=== PATIENT | male | born 1960 | race Caucasian/White ===

== ENCOUNTER 2019-04-14 22:07 | Emergency (ER) | payer MEDICARE, OTHER, SELFPAY ==
[2019-04-14 22:12] VITALS: BP 200/93; PULSE 82; RESP 20; TEMP 36.4; O2SAT 100; BMI 31.4
[2019-04-14 22:42] LABS: Basophils % 0.3 %; Eosinophils % 0.3 %; Hematocrit 45.8 % (42.0-52.0); Hemoglobin 14.8 g/dL (11.7-16.6); Lymphocytes # 1.1 10^3/uL (0.8-4.8); Mean Corpuscular HGB Conc 32.3 g/dL (30.0-36.0); Mean Corpuscular Hemoglobin 29.4 pg (28.0-34.0); Mean Corpuscular Volume 91.1 fL (80-94); Mean Platelet Volume 9.7 fL (7.4-10.4); Monocytes # 0.8 10^3/uL (0.2-0.9); Monocytes % 6.7 %; Neutrophils % 83.4 %; Nucleated Red Blood Cells % 0 %; Platelet Count 233 10^3/cmm (130-400); Red Blood Count 5.03 10^6/uL (4.1-5.3); Red Cell Distribution Width 13.4 % (12.1-15.1)
[2019-04-14 23:04] LABS: Alanine Aminotransferase 35 U/L (0-41); Albumin Level 4.3 g/dL (3.5-5.2); Alkaline Phosphatase 97 IU/L (40-130); Anion Gap 19.8 (5-19); Aspartate Amino Transferase 37 U/L (0-40); Blood Urea Nitrogen 7 mg/dL (6-20); Calcium 10.2 mg/dL (8.5-10.5); Carbon Dioxide 23 mmol/L (22-29); Chloride 95 mmol/L (98-107); Creatinine Clr Calc Pharmacy 99.4552; Globulin 2.8 g/dL (1.3-4.6); Glomerular Filtration Rate 69.2 mL/min (90-130); Glucose 162 mg/dL (65-115); Potassium 3.8 mmol/L (3.5-5.1); Sodium 134 mmol/L (136-145); Total Bilirubin 0.8 mg/dL (0.15-1.2); Total Protein 7.1 g/dL (6.6-8.7)
--- NOTE | 2019-04-14 23:21 | CTR_ITS ---
PROCEDURE INFORMATION: Exam: CT Abdomen And Pelvis With Contrast Exam date and time: 04/14/2019 12:03 AM Age: 58 years old Clinical indication: Nausea and vomiting; Abdominal pain; Other: Llq; Prior surgery; Surgery date: 6+ months; Surgery type: Gallbladder; Additional info: Abd pain TECHNIQUE: Imaging protocol: Computed tomography of the abdomen and pelvis with intravenous contrast. Total DLP: 1952.02 mGy-cm Radiation optimization: All CT scans at this facility use at least one of these dose optimization techniques: automated exposure control; mA and/or kV adjustment per patient size (includes targeted exams where dose is matched to clinical indication); or iterative reconstruction. Contrast material: OMNI 300; Contrast volume: 95 ml; Contrast route: 20G; COMPARISON: No relevant prior studies available. FINDINGS: Liver: There is a diffuse decrease in hepatic parenchymal density, consistent with mild fatty infiltration. There is a small cyst in the left lobe of the liver.Multiple calcified gallstones are present. Gallbladder and bile ducts: Normal. No calcified stones. No ductal dilation. Pancreas: The pancreas is normal. Spleen: The spleen is normal. Adrenals: The adrenal glands are normal. Kidneys and ureters: There are 2 stones in the mid left ureter measuring approximately 3 and 4 mm in size causing left hydronephrosis and hydroureter. There is left perinephric stranding and delay in the left nephrogram consistent with acute obstruction. Right kidney is unremarkable. Stomach and bowel: Unremarkable. No obstruction. No mucosal thickening. Appendix: A normal appendix is identified. Intraperitoneal space: Unremarkable. No free air. No significant fluid collection. Vasculature: The aorta demonstrates mild atherosclerotic calcification. Lymph nodes: Unremarkable. No enlarged lymph nodes. Bladder: Unremarkable as visualized. Reproductive: The prostate demonstrates moderate nonspecific enlargement. The seminal vesicles are normal. Bones/joints: The lumbar spine demonstrates mild degenerative changes at multiple levels. Soft tissues: There are small bilateral inguinal hernias containing fat. CT/CT abdomen pelvis w con* [id number] IMPRESSION: Obstructing stones in the mid left ureter causing left hydronephrosis. Radiation Dose CTDIVOL = (mGy): DLP = 1952.02 (mGy-cm)
--- NOTE | 2019-04-14 23:35 | ED_ITS ---
Entered by Radha Alamo, acting as scribe for Apr 14, 2019 22:07 HPI - Abdominal Pain General: Chief Complaint: Abdominal Pain Stated Complaint: low abd pain Time Seen by Provider: 04/14/19 23:35 Source: patient Mode of arrival: ambulatory Limitations: no limitations History of Present Illness: HPI narrative: 58 yo m came to the er pov for abd pain. Onset was today. Pt states that the pain is in the llq and radiates to the left flank and back. Pt states that he has had nausea and chills. MD elicited complaint: abdominal pain Location: LLQ and L flank Severity: mild Radiation: back Exacerbating factors: vomiting Relieving factors: nothing Associated Symptoms: Reports chills, nausea and vomiting; Denies dysuria and hematuria Review of Systems General: Reports: other (negative unless marked) Const: Reports: chills Eyes: Denies: change in vision or blurry vision ENMT: Denies: swelling of lips/tongue or Change in hearing Card: Denies: chest pain, palpitations, irregular heart rhythm, edema, swelling of feet/ankles, shortness of breath on exertion or shortness of breath when lying down Resp: Denies: shortness of breath, productive cough, non-productive cough or wheezing GI: Reports: abdominal pain, nausea and vomiting : Denies: difficulty urinating, painful urination, urinary frequency, urinary urgency or blood in urine Skin/Breast: Denies: rash, itching or redness Neuro: Denies: headache, dizziness or vertigo Psych: Denies: anxiety PFSH ED PFSH: Statuses (acute, chronic, etc) shown below reflect problem list status as previously entered and may not be historically accurate Social History Smoking and tobacco status: current every day smoker Physical Exam Const: GENERAL APPEARANCE: well developed ORIENTATION/CONSCIOUSNESS: Yes oriented to person, Yes oriented to place and Yes oriented to time HENMT: COMMON NORMALS: normocephalic, external ears normal and external nose normal HEAD & SCALP: normocephalic; no scalp tenderness FACE & SINUS: normal facial exam NOSE: external nose normal and no nasal discharge EXTERNAL EAR: Yes external ears normal MOUTH: tongue normal TEETH & GINGIVA: no abnormal tooth and associated gin giva THROAT: posterior oropharynx normal; no peritonsillar mass Eye: COMMON NORMALS: PERRL, EOMs intact bilaterally and conjunctivae normal EYELID: eyelids normal CONJUNCTIVA: Yes conjunctivae normal PUPIL: Yes PERRL Neck/C-Spine: COMMON NORMALS: full ROM GENERAL: No tracheal deviation CERVICAL SPINE: Yes normal cervical lordosis and No cervical spine tenderness Chest: COMMONS NORMALS: inspection of chest normal CHEST: No tenderness Resp: COMMON NORMALS: clear to auscultation bilaterally EFFORT & INSPECTION: No tachypneic, No respiratory distress, No retractions, No uses accessory muscles and No tracheal deviation AUSCULTATION: clear to auscult ation bilaterally, no rhonchi, no wheezes and lung sounds not diminished Cardio: COMMON NORMALS: regular rate and regular rhythm RATE: regular rate RHYTHM: regular rhythm HEART SOUNDS: no murmurs PERIPHERAL PULSES: radial pulses present GI: INSPECTION: No abdominal distension AUSCULTATION: No hyperactive bowel sounds and No hypoactive bowel sounds PALPATION: Yes tender Details: LLQ, No guarding and No rigid PERCUSSION: no dullness to percussion and no tympanic to percussion : BLADDER/KIDNEY EXAM: Yes CVA tenderness on the left Back/Pelvis: GENERAL BACK: Yes CVA tenderness Neuro: SENSORIUM/ORIENTATION: Yes oriented to person, Yes oriented to place and Yes oriented to time Psych: COMMON NORMALS: mental status grossly normal Skin: COMMON NORMALS: no rashes or lesions noted GENERAL SKIN EXAM: no rashes or lesions noted Course ED course: 58-year-old male with left flank and left lower quadrant pain. He has been vomiting. Mild leukocytosis. His pain was relieved with Toradol and Dilaudid. His CT scan shows a 3 mm and 4 mm stone in the left ureter causing hydronephrosis. There is no pyelonephritis. With improvement in his symptoms he will be allowed home with pain and nausea control. Vital Signs: Vital signs: Vital Signs Temperature 97.6 F 04/14/19 22:12 Pulse Rate 70 04/15/19 01:42 Respiratory Rate 16 04/15/19 01:42 Blood Pressure 149/82 04/15/19 01:42 Pulse Oximetry 94 04/15/19 01:42 MDM - Abdominal Pain Lab Data: Labs: Lab Results 02/07/20 02/07/20 02/07/20 Range/Units 22:32 22:32 23:55 WBC 12.0 H (4.0-10.0) 10^3/ uL RBC 5.03 (4.1-5.3) 10^6/u L Hgb 14.8 (11.7-16.6) g/dL Hct 45.8 (42.0-52.0) % MCV 91.1 (80-94) fL MCH 29.4 (28.0-34.0) pg MCHC 32.3 (30.0-36.0) g/dL RDW 13.4 (12.1-15.1) % Plt Count 233 (130-400) 10^3/c mm MPV 9.7 (7.4-10.4) fL Neut % (Auto) 83.4 % Lymph % (Auto) 9.0 % [place] % (Auto) 6.7 % Eos % (Auto) 0.3 % Baso % (Auto) 0.3 % Neut # (Auto) 10.0 H (1.8-7.7) 10^3/u L Lymph # (Auto) 1.1 (0.8-4.8) 10^3/u L [place] # (Auto) 0.8 (0.2-0.9) 10^3/u L Eos # (Auto) 0.0 (0.0-0.8) 10^3/u L Baso # (Auto) 0.0 (0.0-0.1) 10^3/u L Nucleated RBC % (a uto) 0 % Nucleated RBCs # 0.0 /100WBC Sodium 134 L (136-145) mmol/L Potassium 3.8 (3.5-5.1) mmol/L Chloride 95 L (98-107) mmol/L Carbon Dioxide 23 (22-29) mmol/L Anion Gap 19.8 H (5-19) BUN 7 (6-20) mg/dL Creatinine 1.1 (0.7-1.2) mg/dL GFR Calculation 69.2 L (90-130) mL/min Glucose 162 H (65-115) mg/dL Calcium 10.2 (8.5-10.5) mg/dL Total Bilirubin 0.8 (0.15-1.2) mg/dL AST 37 (0-40) U/L ALT 35 (0-41) U/L Alkaline Phosphata se 97 (40-130) IU/L Total Protein 7.1 (6.6-8.7) g/dL Albumin 4.3 (3.5-5.2) g/dL Globulin 2.8 (1.3-4.6) g/dL Urine Color Dark yellow (Yellow) Urine Appearance Cloudy (CLEAR) Urine pH 5 (5-7) Ur Specific Gravit y 1.020 (1.005-1.030) Urine Protein Trace (Negative) Urine Glucose (UA) 4+ H (Normal) Urine Ketones 1+ H (Negative) Urine Occult Blood 3+ H (Negative) Urine Nitrate Negative (Negative) Urine Bilirubin Neg (NEGATIVE) Urine Urobilinogen 1 H (Negative) mg/dL Ur Leukocyte Lu ase Negative (Negative) Urine RBC >100 H (0-2) /hpf Urine WBC 5-10 H (0-5) /hpf Ur Squamous Epith Cells 0-4 H (0-5) Urine Bacteria 1+ H (NONE) Urine Mucus 2+ Imaging Data ^: CT Abd/Pel: Radiologist's impression: [place] [address] CT Scan Report Signed Patient: Chris Vora #: [id number] : 1960Acct#:[id number] Age/Sex: 58 / MADM Date: 04/14/19 Loc: ERRoom/Bed: Attending Dr: Ordering Provider/Ordering MD: Cl Alcazar DO Date of Service: 04/14/19 Procedure(s): CT abdomen pelvis w con* [id number] Accession Number(s): [id number] Report Number: [id number] PROCEDURE INFORMATION: Exam: CT Abdomen And Pelvis With Contrast Exam date and time: 04/14/2019 12:03 AM Age: 58 years old Clinical indication: Nausea and vomiting; Abdominal pain; Other: Llq; Prior surgery; Surgery date: 6+ months; Surgery type: Gallbladder; Additional info: Abd pain TECHNIQUE: Imaging protocol: Computed tomography of the abdomen and pelvis with intravenous contrast. Total DLP: 1952.02 mGy-cm Radiation optimization: All CT scans at this facility use at least one of these dose optimization techniques: automated exposure control; mA and/or kV adjustment per patient size (includes targeted exams where dose is matched to clinical indication); or iterative reconstruction. Contrast material: OMNI 300; Contrast volume: 95 ml; Contrast route: 20G; COMPARISON: No relevant prior studies available. FINDINGS: Liver: There is a diffuse decrease in hepatic parenchymal density, consistent with mild fatty infiltration. There is a small cyst in the left lobe of the liver.Multiple calcified gallstones are present. Gallbladder and bile ducts: Normal. No calcified stones. No ductal dilation. Pancreas: The pancreas is normal. Spleen: The spleen is normal. Adrenals: The adrenal glands are normal. Kidneys and ureters: There are 2 stones in the mid left ureter measuring approximately 3 and 4 mm in size causing left hydronephrosis and hydroureter. There is left perinephric stranding and delay in the left nephrogram consistent with acute obstruction. Right kidney is unremarkable. Stomach and bowel: Unremarkable. No obstruction. No mucosal thickening. Appendix: A normal appendix is identified. Intraperitoneal space: Unremarkable. No free air. No significant fluid collection. Vasculature: The aorta demonstrates mild atherosclerotic calcification. Lymph nodes: Unremarkable. No enlarged lymph nodes. Bladder: Unremarkable as visualized. Reproductive: The prostate demonstrates moderate nonspecific enlargement. The seminal vesicles are normal. Bones/joints: The lumbar spine demonstrates mild degenerative changes at multiple levels. Soft tissues: There are small bilateral inguinal hernias containing fat. CT/CT abdomen pelvis w con* [id number] IMPRESSION: Obstructing stones in the mid left ureter causing left hydronephrosis. Radiation Dose CTDIVOL = (mGy): DLP = 1952.02 (mGy-cm) Dictated By:Emil Louis Signed By:Lisha Louisigned Date/Time:04/15/1938 DD/ Discharge Plan Discharge Patient Disposition: Home, Self-Care Clinical Impression: Ureterolithiasis Condition: Stable Prescriptions: New Percocet 7.5-325 mg tablet 1 tab PO Q6H PRN (Reason: pain) Qty: 14 RF: 0 Zofran 4 mg tablet 4 mg PO Q6H Qty: 10 RF: 0 Discharge Orders: Discharge Order (Routine); Ordered 04/15/19 Ordered By: Cl Alcazar Referrals: Rik Barraza MD [Physician] - 4-7 days [place],Jose Elias D, DO [Family Provider] - Discharge Diet: Advance as tolerated Discharge Activity: Increase activity as tolerated Patient Instructions: Kidney Stones (ED) Activity Restrictions/Additional Instructions: Return for fever greater than 100, worsening pain despite treatment, vomiting liquids or medications, other concerning symptoms. Call the urology office Wednesday morning for a follow-up appointment. Discharge Date/Time: 04/15/19 01:42 Coding Level of Care Code ED Airline Dispatcher for g Fwd The documentation recorded by the Jasmeet wright Stephanie Lyn, accurately reflects the service I personally performed and the decisions made by Ottoniel willard Jeremy John, DO Apr 14, 2019 22:07
[2019-04-14 23:56] VITALS: RESP 16
[2019-04-14] MEDS: HYDROmorphone 1 mg/mL INJ 1 mL IVP (23:56)
[2019-04-14] MEDS: ondansetron 2 mg/ML SDV 2 mL 4 MG IVP (23:56)
[2019-04-14] MEDS: ketorolac 30 mg/mL INJ IVP (23:57)
[2019-04-15 00:02] VITALS: BP 209/92
[2019-04-15] MEDS: iohexol 300 mg/mL 100 mL Btl IV (00:19)
[2019-04-15 00:50] LABS: Urine Appearance Cloudy (CLEAR); Urine Color Dark Yellow (Yellow); pH Urine 5 (5-7)
[2019-04-15 00:51] LABS: Add Urine Culture? Yes; Add Urine Microscopic? YES; Bacteria Urine 1+; Bilirubin Urine Neg (NEGATIVE); Blood Urine 3+ (Negative); Glucose Urine UA 4+ (Normal); Ketones Urine 1+ (Negative); Leukocyte Esterase Urine Negative (Negative); Mucus Urine 2+; Nitrate Urine Negative (Negative); Protein Urine Trace (Negative); RBC Urine >100 /hpf (0-2); Squamous Epithelial Cell Urine 0-4 (0-5); Urobilinogen Urine 1 mg/dL (Negative)
[2019-04-15 01:42] VITALS: BP 149/82; PULSE 70; RESP 16; O2SAT 94
--- NOTE | 2019-04-18 09:21 | DCPLANNER ---
Addendum entered by Guerita Mijares 04/26/19 11:20: commercial sales manager spoke with Shawnee at Dr. Quispe office, was told that clinic called patient to schedule a follow up appointment for patient. commercial sales manager was told that patient stated that he wants to follow up with his [facility] before seeing Dr. Barraza. Original Note: commercial sales manager had message to schedule a follow up appointment for patient with Dr. Barraza. commercial sales manager called the office of Dr. Barraza, spoke with [place], gave clinic patients name. Patient has [facility] insurance, cannot schedule a follow up appointment at this time. commercial sales manager called Sheila at [facility], gave her patients name, and the need for follow up with Dr. Barraza. commercial sales manager [facility].
== END 2019-04-15 01:42 | disposition home or self-care (01) ==
PROVIDERS: Physician Assistant; Emergency Provider Emergency Medicine; Family Provider Emergency Medicine Emergency Medical Services
DX: N20.1 Calculus of ureter (principal); F17.210 Nicotine dependence, cigarettes, uncomplicated
CPT/HCPCS: 36415; 74177; 80053; 81001; 85025; 87086; 96374; 96375; 99282; J1170; J1885; J2405; Q9967

== ENCOUNTER 2020-09-06 14:34 | Outpatient (CLI) | payer OTHER, SELFPAY ==
--- NOTE | 2020-09-06 14:43 | MR_ITS ---
WS: [id number] MRI LUMBAR SPINE NONCONTRAST HISTORY: LOW BACK PAIN COMPARISON: None available. TECHNIQUE: Sagittal and axial multisequence imaging is submitted. Normal posterior alignment. No acute fractures. Small amount of reactive marrow edema at L4. Mild disc space desiccation at L4-5 and L5-S1. Conus terminates normally at L1-2 disc level. L1-L2: Normal. L2-L3: Mild disc bulging and ligamentum flavum hypertrophy. No stenosis. L3-L4: Mild ligamentum flavum hypertrophy. No stenosis. L4-L5: Mild annular disc bulging. Mild disc flattening upon the thecal sac contacting the L5 nerve ro ots. No central or foraminal stenosis. L5-S1: Very mild facet joint arthritis. No stenosis. Paravertebral soft tissues are normal. MR/MR lumbar spine wo con* [id number] IMPRESSION: 1. No high-grade central or foraminal stenosis. 2. Mild disc bulging at L4-5 with minimal contact on the L5 nerve roots bilate rally. 3. Mild facet joint arthritis at L4-5 and L5-S1.
== END 2020-09-06 14:35 | disposition home or self-care (01) ==
PROVIDERS: PCP Emergency Medicine Emergency Medical Services; Visit Provider Emergency Medicine Emergency Medical Services
DX: M51.26 Other intervertebral disc displacement, lumbar region (principal); M47.816 Spondylosis without myelopathy or radiculopathy, lumbar region; M47.817 Spondylosis without myelopathy or radiculopathy, lumbosacral region
CPT/HCPCS: 72148

== ENCOUNTER → 2021-05-28 13:27 | Outpatient (BNVA) | payer OTHER, SELFPAY | PROVIDERS: PCP Emergency Medicine Emergency Medical Services; Visit Provider Internal Medicine | DX: E11.9 Type 2 diabetes mellitus without complications (principal); I25.2 Old myocardial infarction; I10 Essential (primary) hypertension; E78.5 Hyperlipidemia, unspecified; I73.9 Peripheral vascular disease, unspecified; F17.210 Nicotine dependence, cigarettes, uncomplicated; R00.2 Palpitations | CPT/HCPCS: 99214 ==

== ENCOUNTER → 2022-02-25 13:52 | Outpatient (BNVA) | payer OTHER, SELFPAY | PROVIDERS: PCP Emergency Medicine Emergency Medical Services; Visit Provider Internal Medicine | DX: I10 Essential (primary) hypertension (principal); E11.9 Type 2 diabetes mellitus without complications; Z79.4 Long term (current) use of insulin; I25.2 Old myocardial infarction; E78.5 Hyperlipidemia, unspecified; I73.9 Peripheral vascular disease, unspecified; F17.210 Nicotine dependence, cigarettes, uncomplicated | CPT/HCPCS: 99214 ==

== ENCOUNTER → 2022-12-23 16:02 | Outpatient (BNVA) | payer OTHER, SELFPAY | PROVIDERS: PCP Emergency Medicine Emergency Medical Services; Referring Provider Emergency Medicine Emergency Medical Services; Visit Provider Specialist | DX: M25.551 Pain in right hip; M54.31 Sciatica, right side; M16.0 Bilateral primary osteoarthritis of hip | CPT/HCPCS: 73502; 99204 ==

== ENCOUNTER → 2023-01-04 10:53 | Outpatient (BNVA) | payer OTHER, SELFPAY | PROVIDERS: PCP Emergency Medicine Emergency Medical Services; Referring Provider Emergency Medicine Emergency Medical Services; Visit Provider Surgery | DX: E61.1 Iron deficiency (principal) | CPT/HCPCS: 99204 ==

== ENCOUNTER 2023-01-12 08:06 | Day surgery (SDC) | payer OTHER, SELFPAY ==
--- NOTE | 2023-01-12 06:41 | W.PM.OPSUD ---
Surgery/Procedure H&P Update DATE OF PROCEDURE: January 12, 2023 DATE H&P PERFORMED: 01/04/23 H&P UPDATE INFORMATION: I have reviewed H&P completed within last 30 days, I have examined patient prior to procedure, No changes to prior documentation and [place] [facility] [place] indicated PLANNED PROCEDURE: Operation Date: 01/12/23 09:10 Proposed Procedures p 19050 egd [id number] colon G0121 screen colon A risk E61.1,z12.11(Not Applicable) - Bryan Kramer MD s Colonoscopy(Not Applicable) - Bryan Kramer MD
[2023-01-12 08:19] VITALS: BMI 29.5
[2023-01-12 08:22] VITALS: BP 115/71; PULSE 65; RESP 18; TEMP 36.1; O2SAT 99
--- NOTE | 2023-01-12 08:31 | ANES.PREANE2 ---
Pre-Anesthetic Assessment Height/Weight: Height 1.88 m Weight 104.326 kg Temp Pulse Resp BP Pulse Ox O2 Del Method 97.0 F L 65 18 115/71 99 Room Air 01/12/23 08:22 01/12/23 08:22 01/12/23 08:22 01/12/23 08:22 01/12/23 08:22 01/12/23 08:22 Preop Diagnosis: screening Operation Date: 01/12/23 09:10 Proposed Procedures p 19078 egd [id number] colon G0121 screen colon A risk E61.1,z12.11(Not Applicable) - Bryan Kramer MD s Colonoscopy(Not Applicable) - Bryan Kramer MD Familial anesthetic complications: none Was Beta [place] taken within 24 hours: Yes Was Clonidine taken within 24 hours: N/A Last intake: Intake Last Liquid Date 01/11/23 Last Liquid Time 11:55 Last Solid Date 01/11/23 Last Solid Time 06:00 Social Alcohol (history states he hasnt had any in a month) and Tobacco 2 pack(s) per day 30 pack years Exam alert, oriented x 3, clear to auscultation bilaterally and regular rate & rhythm Airway Submandibular: within normal limits Cervical ROM: within normal limits Mallampati: Class II Dentition: false Pulmonary Chronic Obstructive Pulmonary Disease and Exertional Dyspnea CV/HEM Stable Angina, Coronary Artery Disease, Hypertension and Myocardial Infarction stents x 2,1,1 last 4-5 years ago nitro taken 3 months None reported Hepatic None reported GI Gastroesophageal Reflux Disease (controlled) Metabolic Diabetes Mellitus and Hyperlipidemia [facility] Lower Back Pain and Osteoarthritis/DJD Neuropsych None reported Anesthetic Plan ASA status: 3 Anesthesia: MAC Risk of > 500 ml blood loss (7ml/kg in children): No Medications/Allergies Home Medications Medication Instructions Recorded Confirmed Last Taken Type amitriptyline 50 mg tablet 150 mg PO .HS 02/25/21 01/12/23 01/11/23 History amlodipine 5 mg tablet 5 mg PO DAILY #90 tabs 02/25/21 01/12/23 01/11/23 Rx aspirin 81 mg tablet,delayed 81 mg PO DAILY 02/25/21 01/12/23 01/04/23 History release (Adult Low Dose Aspirin) atorvastatin 80 mg tablet 80 mg PO .HS 02/25/21 01/12/23 01/11/23 History clopidogrel 75 mg tablet 75 mg PO DAILY 02/25/21 01/12/23 01/07/23 History hydrochlorothiazide 25 mg tablet 25 mg PO DAILY 02/25/21 01/12/23 01/11/23 History insulin aspart U-100 100 unit/mL 10 unit SUBCUT TID 02/25/21 01/12/23 01/11/23 History (3 mL) subcutaneous pen (Novolog FlexPen U-100 Insulin aspart) insulin glargine 100 unit/mL 20 unit SUBCUT DAILY 02/25/21 01/12/23 01/11/23 History subcutaneous solution (Lantus U-100 Insulin) isosorbide mononitrate 30 mg 30 mg PO DAILY 02/25/21 01/12/23 01/11/23 History tablet,extended release 24 hr metformin 1,000 mg tablet 1,000 mg PO BID 02/25/21 01/12/23 01/10/23 History metoprolol tartrate 100 mg tablet 50 mg PO BID 02/25/21 01/12/23 01/12/23 History omeprazole 20 mg capsule,delayed 20 mg PO DAILY 02/25/21 01/12/23 01/11/23 History release empagliflozin 25 mg tablet 25 mg PO DAILY 02/25/22 01/12/23 01/11/23 History (Jardiance) meloxicam 15 mg tablet 15 mg PO DAILY #30 tabs 12/23/22 01/12/23 01/11/23 Rx Allergies Allergy/AdvReac Type Severity Reaction Status Date / Time morphine Allergy Mild ADR-Halluci Verified 01/12/23 08:22 nating lisinopril Allergy Unknown Unknown Verified 01/12/23 08:22 methadone Allergy Unknown Unknown Verified 01/12/23 08:22 REPLACED BY [facility] Anesthesia Medical History Diabetes mellitus History of [place] (myocardial infarction) HTN (hypertension) Hyperlipidemia Left ureteral calculus PVD (peripheral vascular disease) Social History (Updated 01/08/23 @ 12:59 by Krystyna Olson RN) Smoking and tobacco/nicotine status: current every day tobacco/nicotine user (2.5 ppd) cigarettes Packs smoked per day: 3 Alcohol intake: current Alcohol intake frequency: 0-2 Drinks per Day Alcohol type: hard liquor Substance/Drug Use: current Data Anesthesia Cardiac Studies: No Data to Display
[2023-01-12] MEDS: sodium chloride 0.9% 1,000 ML 30 ML IV (08:35)
[2023-01-12 08:38] LABS: Glucose Point of Care 118 mg/dL (70-110)
[2023-01-12 09:48] VITALS: BP 91/55; PULSE 57; RESP 12; TEMP 36.1; O2SAT 94
--- NOTE | 2023-01-12 09:59 | ANE.PACU2 ---
Inpatient post-anesthesia follow up: Airway intact: Yes Vital signs: Temperature 97 F Pulse Rate 57 Respiratory Rate 12 Blood Pressure 91/55 Pulse Oximetry 94 Oxygen Delivery Me thod Nasal Cannula Oxygen Flow Rate 3 Fraction of Inspir ed Oxygen Hydration adequate: Yes Nausea and vomiting: No Pain level: 1 Mental status: Baseline
[2023-01-12 10:00] VITALS: BP 96/54; PULSE 62; RESP 14; O2SAT 97
[2023-01-12 10:12] VITALS: BP 105/69; PULSE 55; RESP 12; O2SAT 98
== END 2023-01-12 10:40 | disposition home or self-care (01) ==
PROVIDERS: PCP Emergency Medicine Emergency Medical Services; Visit Provider Surgery
PROC: 0DJ08ZZ Inspection of Upper Intestinal Tract, Via Natural or Artificial Opening Endoscopic (ICD-10-PCS; CPT 43235; principal; 2023-01-12 09:10)
PROC: 0DJD8ZZ Inspection of Lower Intestinal Tract, Via Natural or Artificial Opening Endoscopic (ICD-10-PCS; CPT 45330; 2023-01-12 09:10)
DX: Z12.11 Encounter for screening for malignant neoplasm of colon (principal); E61.1 Iron deficiency; K29.70 Gastritis, unspecified, without bleeding; K26.9 Duodenal ulcer, unspecified as acute or chronic, without hemorrhage or perforation; J44.9 Chronic obstructive pulmonary disease, unspecified; I25.10 Atherosclerotic heart disease of native coronary artery without angina pectoris; I10 Essential (primary) hypertension; I25.2 Old myocardial infarction; Z95.5 Presence of coronary angioplasty implant and graft; E11.9 Type 2 diabetes mellitus without complications; E78.5 Hyperlipidemia, unspecified; Z79.82 Long term (current) use of aspirin; Z79.4 Long term (current) use of insulin; F17.210 Nicotine dependence, cigarettes, uncomplicated
CPT/HCPCS: 36416; 43239; 45330; 82962; 88305; J2704; J7030

== ENCOUNTER 2023-02-01 13:17 | Outpatient (CLI) | payer OTHER, SELFPAY ==
--- NOTE | 2023-02-01 13:00 | MR_ITS ---
WS: [id number] MRI RIGHT HIP WITHOUT CONTRAST. COMPARISON: Radiograph 12/23/2022 Multiplanar, multisequence imaging is performed without contrast. Mild narrowing of each hip joint. No fracture or dislocation. No subtrochanteric bursitis. No marrow edema. The labrum is not adequately visualized to exclude labral tear. There is no muscle atrophy or edema surrounding the hip. No adenopathy. IMPRESSION: 1. No significant joint space narrowing and no marrow edema. No fracture. 2. Labrum is not well evaluated. Cannot exclude labral tear.
== END 2023-02-01 13:18 | disposition home or self-care (01) ==
LOC: RAD 13:17
PROVIDERS: PCP Emergency Medicine Emergency Medical Services; Visit Provider Specialist
DX: M25.551 Pain in right hip (principal)
CPT/HCPCS: 73721

== ENCOUNTER 2023-02-24 07:10 | Day surgery (SDC) | payer OTHER, SELFPAY ==
[2023-02-24 07:34] VITALS: BP 113/60; PULSE 61; RESP 18; TEMP 36.1; O2SAT 96; BMI 30.2
[2023-02-24] MEDS: sodium chloride 0.9% 1,000 ML 30 ML IV (07:51)
[2023-02-24 07:53] LABS: Glucose Point of Care 152 mg/dL (70-110)
--- NOTE | 2023-02-24 07:53 | W.PM.OPSFHP ---
Same Day Surgery H&P Indication for Procedure/HPI DATE OF PROCEDURE: February 24, 2023 CHIEF COMPLAINT/INDICATIONFOR SURGICAL PROCEDURE: need for screening colonoscopy PREOP DIAGNOSIS: need for screening colonoscopy after poor prep PLANNED PROCEDURE: Operation Date: 02/24/23 08:30 Proposed Procedures p 49588 egd 11798 colon G0121 screen colon A risk E61.1,Z12.11(Not Applicable) - Bryan Kramer MD s Colonoscopy(Not Applicable) - Bryan Kramer MD Medications/Allergies* Home Medications Medication Instructions Recorded Confirmed Type amitriptyline 50 mg tablet 150 mg PO .HS 02/25/21 02/23/23 History aspirin 81 mg tablet,delayed 81 mg PO DAILY 02/25/21 02/23/23 History release (Adult Low Dose Aspirin) atorvastatin 80 mg tablet 80 mg PO .HS 02/25/21 02/23/23 History clopidogrel 75 mg tablet 75 mg PO DAILY 02/25/21 02/23/23 History hydrochlorothiazide 25 mg tablet 25 mg PO DAILY 02/25/21 02/23/23 History insulin aspart U-100 100 unit/mL 10 unit SUBCUT TID 02/25/21 02/23/23 History (3 mL) subcutaneous pen (Novolog FlexPen U-100 Insulin aspart) insulin glargine 100 unit/mL 20 unit SUBCUT DAILY 02/25/21 02/23/23 History subcutaneous solution (Lantus U-100 Insulin) isosorbide mononitrate 30 mg 30 mg PO QPM 02/25/21 02/23/23 History tablet,extended release 24 hr metformin 1,000 mg tablet 1,000 mg PO BID 02/25/21 02/23/23 History metoprolol tartrate 100 mg tablet 50 mg PO BID 02/25/21 02/23/23 History omeprazole 20 mg capsule,delayed 20 mg PO DAILY 02/25/21 02/23/23 History release empagliflozin 25 mg tablet 25 mg PO DAILY 02/25/22 02/23/23 History (Jardiance) Allergies/Adverse Reactions Allergy/AdvReac Type Severity Reaction Status Date / Time morphine Allergy Mild ADR-Halluci Verified 02/23/23 08:32 nating lisinopril Allergy Unknown Unknown Verified 02/23/23 08:32 methadone Allergy Unknown Unknown Verified 02/23/23 08:32 Current Medications: Generic Name Dose Route Start Last Admin Trade Name Freq PRN Reason Stop Dose Admin Sodium Chloride 1,000 mls @ 30 mls/hr 02/24/23 07:15 02/24/23 07:51 Sodium Chloride 0.9% IV 02/25/23 07:14 30 mls/hr .Q24H JUNAID Administration Pertinent History/Comorbid Conditions* Medical History (Updated 12/26/22 @ 16:14 by Maria D Ramey MD) History of [place] (myocardial infarction) HTN (hypertension) PVD (peripheral vascular disease) Hyperlipidemia Diabetes mellitus Left ureteral calculus Social History Smoking and tobacco/nicotine status: current every day tobacco/nicotine user (2.5 ppd) cigarettes Packs smoked per day: 3 Alcohol intake: current Alcohol intake frequency: 0-2 Drinks per Day Alcohol type: hard liquor Substance/Drug Use: current Pertinent Exam Findings alert, oriented x 3 and clear to auscultation bilaterally Recommendations Surgery/Procedure today Coding Level of Care Code Acute Code for Chg Fwraven
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
[2023-02-24 09:07] VITALS: BP 114/65; PULSE 58; RESP 18; TEMP 36.2; O2SAT 97
--- NOTE | 2023-02-24 13:25 | ANE.PACU2 ---
Inpatient post-anesthesia follow up: Airway intact: Yes Vital signs: Temperature 97.2 F Pulse Rate 58 Respiratory Rate 18 Blood Pressure 114/65 Pulse Oximetry 97 Oxygen Delivery Me thod Room Air Oxygen Flow Rate Fraction of Inspir ed Oxygen Hydration adequate: Yes Nausea and vomiting: No Pain level: 2 Mental status: Baseline
== END 2023-02-24 09:32 | disposition home or self-care (01) ==
PROVIDERS: PCP Emergency Medicine Emergency Medical Services; Visit Provider Surgery
PROC: 0DJD8ZZ Inspection of Lower Intestinal Tract, Via Natural or Artificial Opening Endoscopic (ICD-10-PCS; CPT 45378; 2023-02-24 08:30)
DX: Z12.11 Encounter for screening for malignant neoplasm of colon (principal); Z79.82 Long term (current) use of aspirin; Z79.4 Long term (current) use of insulin; Z79.84 Long term (current) use of oral hypoglycemic drugs; I25.2 Old myocardial infarction; I10 Essential (primary) hypertension; E78.5 Hyperlipidemia, unspecified; E11.9 Type 2 diabetes mellitus without complications; F17.210 Nicotine dependence, cigarettes, uncomplicated; J44.9 Chronic obstructive pulmonary disease, unspecified; G47.30 Sleep apnea, unspecified; Z95.5 Presence of coronary angioplasty implant and graft
CPT/HCPCS: 36416; 45378; 82962; J2704; J7030

== ENCOUNTER 2023-09-14 14:29 | Emergency (ER) | payer OTHER, SELFPAY ==
[2023-09-14 14:30] VITALS: BP 138/81; PULSE 69; RESP 16; TEMP 36.7; O2SAT 98
--- NOTE | 2023-09-14 14:49 | XRR_ITS ---
PROCEDURE INFORMATION: Exam: XR Left Ribs with PA Chest Exam date and time: 09/14/2023 3:16 PM Age: 63 years old Clinical indication: Injury or trauma; Fall; Rib area, left side; Blunt trauma; Additional info: Fall/trauma TECHNIQUE: Imaging protocol: Radiologic exam of the left ribs with PA chest. Views: 3 views COMPARISON: CR XR chest 1V [id number] 09/27/2017 8:12 AM FINDINGS: Lungs: No infiltrate or consolidation. Pleural spaces: No pleural effusion or pneumothorax. Heart/Mediastinum: Cardiac size is within normal limits. Bones/joints: Views of the left ribs are without findings of a rib fracture, and particularly without findings of a displaced rib fracture. XR/XR ribs LT mn 3V w CXR1V [id number] IMPRESSION: No rib fracture identified, and particularly without identification of a displaced rib fracture. Follow-up as clinically indicated.
--- NOTE | 2023-09-14 14:49 | XR_ITS ---
WS: [id number] Left shoulder, 3 views, 09/14/2023 Clinical Data: trauma/fall Comparison: None. Findings: No fractures or dislocations are seen. The AC joint is normal. The adjacent left clavicle, left scapu la and ribs are normal. The soft tissues are unremarkable. XR/XR shoulder LT min 2V* [id number] Impression: Negative left shoulder.
--- NOTE | 2023-09-14 14:50 | W.ED.FALL ---
HPI - Fall General: Chief Complaint: Fall Stated Complaint: fell 7 days left rib pain Time Seen by Provider: 09/14/23 14:41 Source: patient Mode of arrival: ambulatory Limitations: no limitations History of Present Illness: Patient is a nice 63-year-old male presents to ED today with complaint of left-sided rib pain following a fall a week ago. Patient states he accidentally tripped over a piece of plywood that was lying on the floor and fell onto his left side. He felt like he could treat pain conservatively at home but states over the past week pain has not improved. He does not complain of shortness of breath or difficulty breathing. Pain seems to be worse with movement, palpation, coughing/sneezing, etc. Also has some complaints with left shoulder. Denies striking his head or LOC. No neck or back pain. MD complaint: fall Onset (ago): week(s) Fall from: standing Fall witnessed: no Place fall occurred: home Prolonged down time: no Symptoms prior to fall: none Context: tripped/slipped Location of injury: chest Location of injury - extremities: Left: shoulder Severity: moderate Associated symptoms-after fall: Reports chest pain; Denies abdominal pain, headache(s), hematuria, lightheadedness or neck pain Review of Systems Eyes: Denies: change in vision, blurry vision, photophobia, eye discharge, floaters or seeing flashes ENMT: Denies: throat pain, odynophagia, ear or mastoid pain, ear discharge, nasal discharge, epistaxis or sinus pain Card: Reports: chest pain; Denies: palpitations, lightheadedness, syncope or pre-syncope Resp: Denies: dyspnea or pain on inspiration GI: Denies: abdominal pain : Denies: flank pain or hematuria Musc: Reports: joint pain (L shoulder); Denies: neck pain, back pain, extremity pain, extremity swelling or joint swelling Neuro: Denies: headache(s), numbness in extremities, weakness in extremities, sensory changes or dizziness CRITICAL ACCESS HOSPITAL ED PFSH: Medical History History of DC (myocardial infarction) HTN (hypertension) PVD (peripheral vascular disease) Hyperlipidemia Diabetes mellitus Left ureteral calculus Social History Smoking and tobacco/nicotine status: current every day tobacco/nicotine user (2.5 ppd) cigarettes Packs smoked per day: 3 Alcohol intake: current Alcohol intake frequency: 0-2 Drinks per Day Alcohol type: hard liquor Substance/Drug Use: current Physical Exam Const: COMMON NORMALS: no acute distress, average body habitus, patient oriented x3, no limitations, healthy appearing, alert and well nourished GENERAL APPEARANCE: cooperative ORIENTATION/CONSCIOUSNESS: Yes awake, Yes oriented to person, Yes oriented to place and Yes oriented to time HENMT: COMMON NORMALS: normocephalic, atraumatic and TM's normal bilaterally HEAD & SCALP: normal to inspection, normocephalic and atraumatic; no Starr's sign, no hematoma and no raccoon eyes FACE & SINUS: normal facial exam TYMPANIC MEMBRANE: TM's normal bilaterally MOUTH: other (no intraoral injuries noted) Eye: COMMON NORMALS: Equal, round and reactive pupils present and EOMs intact bilaterally GENERAL EYE: appearance normal, both eyes and all related structures and normal light reflex PUPIL: Yes Equal, round and reactive pupils present DIRECT OPHTHALMOSCOPY: Yes normal light reflex Neck/C-Spine: COMMON NORMALS: full ROM GENERAL: Yes normal visual inspection CERVICAL SPINE: Yes cervical ROM normal, No pain with cervical ROM, No Cervical spine tenderness, No step off deformity and No Paracervical muscle tenderness Chest: COMMONS NORMALS: normal inspection of the chest Chest images (male): 1. TTP anteriolateral L chest pain; no crepitus; normal lung sounds Resp: COMMON NORMALS: normal respiratory effort and clear to auscultation bilaterally AUSCULTATION: clear to auscultation bilaterally Cardio: COMMON NORMALS: regular rate and regular rhythm RATE: regular rate RHYTHM: regular rhythm GI: COMMON NORMALS: Normal to inspection, nondistended, normoactive bowel sounds present, Soft to palpation, non-tender, No hepatosplenomegaly present and no masses INSPECTION: Yes normal to inspection and No abdominal wall ecchymosis AUSCULTATION: Yes normoactive bowel sounds PALPATION: Yes Soft to palpation and Yes No hepatosplenomegaly present Back/Pelvis: COMMON NORMALS: thoracic and lumbar spine normal to inspection, no thoracic nor lumbar tenderness and thoraco-lumbar ROM normal Extremity: COMMON NORMALS: normal to inspection, full ROM, capillary refill normal, no joint enlargement and no clubbing, cyanosis or edema LEFT UPPER EXTREMITY: Yes shoulder joint (TTP mildly over medial inferior scapula but normal ROM) Left shoulder joint: Yes neurovascular exam (normal) and Yes other (chronic deformity medial L clavicle from old fracture) Neuro: THONG COMA SCALE: document GCS findings [place] coma scale eye opening: Spontaneous Thong coma scale verbal response: Orientated [place] coma scale motor response: Obey commands [place] coma scale total score: 15 COMMON NORMALS: patient oriented x3, CN's II-XII intact bilaterally, moves all extremities, no focal motor deficits, no sensory deficits noted and gait normal SENSORIUM/ORIENTATION: Yes alert, Yes oriented to person, Yes oriented to place and Yes oriented to time SPEECH: speech normal GAIT: Yes Normal gait present Skin: COMMON NORMALS: no rashes or lesions noted GENERAL SKIN EXAM: no rashes or lesions noted TRAUMA: no lacerations or abrasions Course Vital Signs: Vital signs: Vital Signs Temperature 98.1 F 09/14/23 14:30 Pulse Rate 69 09/14/23 14:30 Respiratory Rate 16 09/14/23 14:30 Blood Pressure 138/81 09/14/23 14:30 Pulse Oximetry 98 09/14/23 14:30 Oxygen Delivery Me thod Room Air 09/14/23 14:30 MDM - Fall Medical Decision Making XRs unremarkable. Vitals stable. EKG performed as well just due to chest pain complaint-this was unremarkable. Patient will be allowed discharge with return precautions-otherwise follow up with PCP. Medical Records I reviewed the patient's medical records. Lab Data Radiology Impressions Ribs X-Ray 09/14/23 14:49 IMPRESSION: No rib fracture identified, and particularly without identification of a displaced rib fracture. Follow-up as clinically indicated. Shoulder X-Ray 09/14/23 14:49 Impression: Negative left shoulder. All radiology interpretation(s) finalized by discharge Discharge Plan Discharge Patient Disposition: Home Clinical Impression: Contusion of rib on left side Qualifiers: Encounter type: initial encounter Qualified Code(s): S20.212A - Contusion of left front wall of thorax, initial encounter Condition: Stable Prescriptions: New hydrocodone-acetaminophen 5-325 mg tablet 1 tab PO Q6H PRN (Reason: pain) Qty: 12 0RF No Action amitriptyline 50 mg tablet 150 mg PO .HS atorvastatin 80 mg tablet 80 mg PO .HS clopidogrel 75 mg tablet 75 mg PO DAILY hydrochlorothiazide 25 mg tablet 25 mg PO DAILY insulin aspart U-100 [Novolog FlexPen U-100 Insulin] 100 unit/mL (3 mL) insulin pen 10 unit SUBCUT TID isosorbide mononitrate 30 mg tablet extended release 24 hr 30 mg PO QPM metformin 1,000 mg tablet 1,000 mg PO BID metoprolol tartrate 100 mg tablet 50 mg PO BID omeprazole 20 mg capsule,delayed release(DR/EC) 20 mg PO DAILY aspirin [Adult Low Dose Aspirin] 81 mg tablet,delayed release (DR/EC) 81 mg PO DAILY Lantus U-100 Insulin 100 unit/mL solution 20 unit SUBCUT DAILY amlodipine 5 mg tablet 5 mg PO DAILY Qty: 90 3RF Jardiance 25 mg tablet 25 mg PO DAILY Discharge Orders: Discharge ED (Routine); Ordered 09/14/23 Ordered By: Minerva Mckinley Referrals: Jose Elias Garcia DO [Primary Care Provider] - Patient Instructions: Rib Contusion (ED), Opioid Safety, Pain Management Activity Restrictions/Additional Instructions: As we discussed please follow-up with your primary care provider in a week or so if symptoms do not seem to be improving. You need to return to the emergency department for worsening chest pain, shortness of breath, difficulty breathing, fevers, or any other concerns you may have. I hope you begin to feel better soon. Coding Level of Care Code ED Public Accountant for Gayathri Meneses
--- NOTE | 2023-09-14 14:58 | ECG_ITS ---
[facility] Test Date: 2023-09-14 Pat Name: Chris Vora Department: Room: Gender: Male Nursing Home Assistant: : 1960 Requested By: Minerva Mckinley Order Number: [id number] Phuc MD: Alicia Crews M.D. Measurements Intervals [place] Rate: 69 P: 52 OK: 211 QRS: 64 QRSD: 87 T: 51 QT: 354 QTc: 381 Interpretive Statements SINUS RHYTHM WITH FIRST DEGREE AV BLOCK WITH OCCASIONAL SUPRAVENTRICULAR PREMATURE COMPLEXES NONSPECIFIC T-WAVE ABNORMALITY Compared to ECG 09/30/2017 05:53:51 First degree AV block now present T-wave abnormality still present Electronically Signed On 09-14-2023 23:48:01 CDT by Alicia Crews M.D. [email or web address]
== END 2023-09-14 15:56 | disposition home or self-care (01) ==
PROVIDERS: Emergency Provider Physician Assistant; PCP Emergency Medicine Emergency Medical Services
DX: S20.212A Contusion of left front wall of thorax, initial encounter (principal); E11.51 Type 2 diabetes mellitus with diabetic peripheral angiopathy without gangrene; I10 Essential (primary) hypertension; E78.5 Hyperlipidemia, unspecified; I25.2 Old myocardial infarction; F17.210 Nicotine dependence, cigarettes, uncomplicated; Z79.899 Other long term (current) drug therapy; Z79.84 Long term (current) use of oral hypoglycemic drugs; Z79.4 Long term (current) use of insulin
CPT/HCPCS: 71101; 73030; 93005; 99284

== ENCOUNTER 2024-06-19 20:00 | Outpatient (CLI) | payer OTHER, SELFPAY | END 2024-06-19 20:01 | disposition home or self-care (01) | LOC: SLEEP 06-20 03:38 | PROVIDERS: PCP Emergency Medicine Emergency Medical Services; Visit Provider Family Medicine | DX: G47.33 Obstructive sleep apnea (adult) (pediatric) (principal); G47.36 Sleep related hypoventilation in conditions classified elsewhere | CPT/HCPCS: 95810 ==

== ENCOUNTER 2024-09-14 14:26 | Emergency (ER) | payer OTHER, SELFPAY ==
[2024-09-14 14:32] VITALS: BP 138/71; PULSE 87; RESP 17; TEMP 36.7; O2SAT 98
--- OUTSIDE RECORDS SUMMARY | 2024-09-14 14:32 | XMS_ITS | Clinical Summary ---
Author Organization [facility] Address [address] 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
--- OUTSIDE RECORDS SUMMARY | 2024-09-14 14:32 | XMS_ITS | Encounter Summary ---
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
[2024-09-14 14:59] LABS: Glucose Urine UA 2+ (Normal); Nitrate Urine Negative (Negative); Specific Gravity, Urine 1.022 (1.005-1.030)
[2024-09-14 15:02] LABS: Add Urine Microscopic? YES
--- NOTE | 2024-09-14 16:05 | W.ED.BACK ---
HPI - Back Pain/Injury General: Chief Complaint: Back Pain/Injury Stated Complaint: low back pain Time Seen by Provider: 09/14/24 15:42 History of Present Illness: 64-year-old man who presents emergency room with right flank and back pain. He says it starts in his mid right back and radiates around to the front. No dysuria. No hematuria. No shortness of breath. No chest pain. No cough. Has a previous cholecystectomy. Hurts with movement. No nausea vomiting or fevers. Related Data Home Medications ?Medication ?Instructions ?Recorded ?Confirmed amitriptyline 50 mg tablet 150 mg PO .HS 02/25/21 02/23/23 aspirin 81 mg tablet,delayed 81 mg PO DAILY 02/25/21 02/23/23 release (Adult Low Dose Aspirin) atorvastatin 80 mg tablet 80 mg PO .HS 02/25/21 02/23/23 clopidogrel 75 mg tablet 75 mg PO DAILY 02/25/21 02/23/23 hydrochlorothiazide 25 mg tablet 25 mg PO DAILY 02/25/21 02/23/23 insulin aspart U-100 100 unit/mL 10 unit SUBCUT TID 02/25/21 02/23/23 (3 mL) subcutaneous pen (Novolog FlexPen U-100 Insulin aspart) insulin glargine 100 unit/mL 20 unit SUBCUT DAILY 02/25/21 02/23/23 subcutaneous solution (Lantus U-100 Insulin) isosorbide mononitrate 30 mg 30 mg PO QPM 02/25/21 02/23/23 tablet,extended release 24 hr metformin 1,000 mg tablet 1,000 mg PO BID 02/25/21 02/23/23 metoprolol tartrate 100 mg tablet 50 mg PO BID 02/25/21 02/23/23 omeprazole 20 mg capsule,delayed 20 mg PO DAILY 02/25/21 02/23/23 release empagliflozin 25 mg tablet 25 mg PO DAILY 02/25/22 02/23/23 (Jardiance) Previous Rx's ?Medication ?Instructions ?Recorded amlodipine 5 mg tablet 5 mg PO DAILY #90 tabs 02/25/21 hydrocodone 5 mg-acetaminophen 325 1 tab PO Q6H PRN pain #12 tabs 09/14/23 mg tablet cyclobenzaprine 10 mg tablet 10 mg PO Q8H PRN muscle spasm #20 09/14/24 tabs dexamethasone 6 mg tablet 6 mg PO DAILY 5 days #5 tabs 09/14/24 diclofenac sodium 50 mg 50 mg PO BID PRN pain #14 tabs 09/14/24 tablet,delayed release tramadol 50 mg tablet 50 mg PO Q8H PRN pain #20 tabs 09/14/24 Allergies Allergy/AdvReac Type Severity Reaction Status Date / Time morphine Allergy Mild ADR-Halluci Verified 09/14/23 14:36 nating lisinopril Allergy Unknown Unknown Verified 09/14/23 14:36 methadone Allergy Unknown Unknown Verified 09/14/23 14:36 Review of Systems Narrative: Constitutional symptoms: Negative except as documented in HPI. Skin symptoms: Negative except as documented in HPI. Eye symptoms: Negative except as documented in HPI. ENMT symptoms: Negative except as documented in HPI. Respiratory symptoms: Negative except as documented in HPI. Cardiovascular symptoms: Negative except as documented in HPI. Gastrointestinal symptoms: Negative except as documented in HPI. Genitourinary symptoms: Negative except as documented in HPI. Musculoskeletal symptoms: Negative except as documented in HPI. Neurologic symptoms: Negative except as documented in HPI. Psychiatric symptoms: Negative except as documented in HPI. Endocrine symptoms: Negative except as documented in HPI. PFSH ED PFSH: Medical History (Updated 09/14/24 @ 18:08 by Nelida Romano MD) History of IA (myocardial infarction) HTN (hypertension) PVD (peripheral vascular disease) Hyperlipidemia Diabetes mellitus Left ureteral calculus Social History Smoking and tobacco/nicotine status: current every day tobacco/nicotine user (2.5 ppd) cigarettes Packs smoked per day: 3 Alcohol intake: current Alcohol intake frequency: 0-2 Drinks per Day Alcohol type: hard liquor Substance/Drug Use: current Physical Exam Narrative: EXAM NARRATIVE: General: Alert, no acute distress. Head: Normocephalic Neck: Trachea midline Eye: Extraocular movements are intact. Ears, nose, mouth and throat: Oral mucosa moist Respiratory: Respirations are non-labored Musculoskeletal: Normal ROM Back: no step off, no focal tenderness, some paraspinal muscle tenderness Neurological: Alert and oriented, No focal neurological deficit observed. Psychiatric: Cooperative, appropriate mood & affect. Course Vital Signs: Vital signs: Vital Signs Temperature 98.1 F 09/14/24 14:32 Pulse Rate 76 09/14/24 17:14 Respiratory Rate 17 09/14/24 14:32 Blood Pressure 140/77 09/14/24 17:14 Pulse Oximetry 96 09/14/24 17:14 Oxygen Delivery Me thod Room Air 09/14/24 17:14 MDM - Back Pain/Injury Medical Decision Making Medical decision making: Differential diagnosis including but not limited to and based on the above HPI, review of systems and physical exam: Ureterolithiasis. Urinary tract infection. Appendicitis. Cholecystis. Musculoskeletal / back pain. Pyelonephritis. Orders placed to evaluate differential diagnosis based on the above differential, HPI and physical exam Lab Review: Laboratory results were reviewed and interpreted by myself the emergency room physician. No leukocytosis. No anemia. No renal failure. No blood or infection in urine. CT abdomen pelvis with contrast: No urologic pathology. No stones. This was reviewed and interpreted by myself the emergency room physician. I also reviewed the radiology report. CT of the lumbar spine: Slight worsening of L4-L5 pathology. Mild right L5 root compromise possibly. However patient's symptoms are not consistent with pathology at this level. This was reviewed and interpreted by myself the emergency room physician. I also reviewed the radiology report. I reviewed the patient's medical record. Reexamination: Patient remained stable. No increased work of breathing. No altered mental status. No focal motor deficits. Consultation: I spoke with Dr. Mack who is on-call for spine orthopedics. He does not believe the pathology seen on the CT scan would be consistent and he should have symptoms down his leg not in his ribs. He will see him in clinic. Assessment and plan: Back pain ? IV Norflex Toradol and Decadron in the emergency room - Discharged home - Discussed plan with patient. Answered any questions. - Evaluation and treatment of this problem were appropriate in the emergency setting. Labs 09/14/24 16:44 09/14/24 16:44 Radiology Impressions Abdomen/Pelvis CT 09/14/24 16:08 IMPRESSION: 1. Interval passage of previously seen obstructing proximal left ureteral stones. Currently, no renal pathology is evident. 2. Prior cholecystectomy. No operative complication is evident. Lumbar Spine CT 09/14/24 16:08 IMPRESSION: 1. Slight interval increase in subarticular recess stenosis on the right at L4-L5 potential mild right L5 root compromise. Clinical correlation is needed. 2. Mild left L5 epiradicular fat effacement, unchanged from prior MRI. Laboratory Results WBC 7.50 10^3/uL (3.29-11.43) 09/14/24 16:44 RBC 5.77 10^6/uL (3.85-5.65) H 09/14/24 16:44 Hgb 16.50 g/dL (11.27-16.99) 09/14/24 16:44 Hct 51.4 % (37-53) 09/14/24 16:44 MCV 89.1 fl (82-101) 09/14/24 16:44 MCH 28.6 pg (27-33) 09/14/24 16:44 MCHC 32.1 g/dL (30-55) 09/14/24 16:44 RDW 17.5 % (12.1-15.1) H 09/14/24 16:44 Plt Count 191 10^3/cmm (157-399) 09/14/24 16:44 MPV 9.0 fL (7.4-10.4) 09/14/24 16:44 Neut % (Auto) 63.3 % 09/14/24 16:44 Lymph % (Auto) 25.3 % 09/14/24 16:44 [place] % (Auto) 8.3 % 09/14/24 16:44 Eos % (Auto) 2.0 % 09/14/24 16:44 Baso % (Auto) 0.8 % 09/14/24 16:44 Neut # (Auto) 4.75 10^3/uL (1.8-7.7) 09/14/24 16:44 Lymph # (Auto) 1.9 10^3/uL (0.8-4.8) 09/14/24 16:44 [place] # (Auto) 0.6 10^3/uL (0.2-0.9) 09/14/24 16:44 Eos # (Auto) 0.2 10^3/uL (0.0-0.8) 09/14/24 16:44 Baso # (Auto) 0.1 10^3/uL (0.0-0.1) 09/14/24 16:44 Nucleated RBC % (auto) 0 % 09/14/24 16:44 Nucleated RBCs # 0.0 /100WBC 09/14/24 16:44 Sodium 138 mmol/L (136-145) 09/14/24 16:44 Potassium 3.9 mmol/L (3.5-5.1) 09/14/24 16:44 Chloride 99 mmol/L (98-107) 09/14/24 16:44 Carbon Dioxide 24 mmol/L (22-29) 09/14/24 16:44 Anion Gap 18.9 (5-19) 09/14/24 16:44 BUN 10 mg/dL (8-23) 09/14/24 16:44 Creatinine 0.7 mg/dL (0.7-1.2) 09/14/24 16:44 GFR Calculation 114.3 mL/min (90-130) 09/14/24 16:44 Glucose 103 mg/dL (65-115) 09/14/24 16:44 Calculated Osmolality 285 mOsm/kg (285-295) 09/14/24 16:44 Lactic Acid 1.4 mmol/L (0.5-2.2) 09/14/24 16:44 Calcium 9.4 mg/dL (8.5-10.5) 09/14/24 16:44 Total Bilirubin 0.4 mg/dL (0.15-1.2) 09/14/24 16:44 AST 22 U/L (0-40) 09/14/24 16:44 ALT 22 U/L (0-41) 09/14/24 16:44 Alkaline Phosphatase 106 U/L (40-130) 09/14/24 16:44 C-Reactive Protein 3.4 mg/L (0.0-4.9) 09/14/24 16:44 Total Protein 7.0 g/dL (6.6-8.7) 09/14/24 16:44 Albumin 4.2 g/dL (3.5-5.2) 09/14/24 16:44 Globulin 2.8 g/dL (1.3-4.6) 09/14/24 16:44 Lipase 25 U/L (13-60) 09/14/24 16:44 Urine Color Yellow (Yellow) 09/14/24 14:20 Urine Appearance Clear (CLEAR) 09/14/24 14:20 Urine pH 5.5 (5-7) 09/14/24 14:20 Ur Specific [place] 1.022 (1.005-1.030) 09/14/24 14:20 Urine Protein Negative (Negative) 09/14/24 14:20 Urine Glucose (UA) 2+ (Normal) H 09/14/24 14:20 Urine Ketones Negative (Negative) 09/14/24 14:20 Urine Blood Negative (Negative) 09/14/24 14:20 Urine Nitrate Negative (Negative) 09/14/24 14:20 Urine Bilirubin Negative (Negative) 09/14/24 14:20 Urine Urobilinogen 0.2 mg/dL (Negative) 09/14/24 14:20 Ur Leukocyte Esterase Negative (Negative) 09/14/24 14:20 Urine RBC 0-2 /hpf (0-2) 09/14/24 14:20 Urine WBC 0-5 /hpf (0-5) 09/14/24 14:20 Ur Squamous Epith Cells 0-5 /hpf (0-5) 09/14/24 14:20 Amorphous Sediment Not Reportable 09/14/24 14:20 Urine Bacteria None seen /hpf (NONE) 09/14/24 14:20 Hyaline Casts 0-4 /lpf H 09/14/24 14:20 All radiology interpretation(s) finalized by discharge Discharge Plan Discharge Patient Disposition: Home Clinical Impression: Back pain Condition: Stable Prescriptions: New cyclobenzaprine 10 mg tablet 10 mg PO Q8H PRN (Reason: muscle spasm) Qty: 20 0RF dexamethasone 6 mg tablet 6 mg PO DAILY 5 Days Qty: 5 0RF tramadol 50 mg tablet 50 mg PO Q8H PRN (Reason: pain) Qty: 20 0RF diclofenac sodium 50 mg tablet,delayed release (DR/EC) 50 mg PO BID PRN (Reason: pain) Qty: 14 0RF No Action amitriptyline 50 mg tablet 150 mg PO .HS atorvastatin 80 mg tablet 80 mg PO .HS clopidogrel 75 mg tablet 75 mg PO DAILY hydrochlorothiazide 25 mg tablet 25 mg PO DAILY insulin aspart U-100 [Novolog FlexPen U-100 Insulin] 100 unit/mL (3 mL) insulin pen 10 unit SUBCUT TID isosorbide mononitrate 30 mg tablet extended release 24 hr 30 mg PO QPM metformin 1,000 mg tablet 1,000 mg PO BID metoprolol tartrate 100 mg tablet 50 mg PO BID omeprazole 20 mg capsule,delayed release(DR/EC) 20 mg PO DAILY aspirin [Adult Low Dose Aspirin] 81 mg tablet,delayed release (DR/EC) 81 mg PO DAILY Lantus U-100 Insulin 100 unit/mL solution 20 unit SUBCUT DAILY amlodipine 5 mg tablet 5 mg PO DAILY Qty: 90 3RF Jardiance 25 mg tablet 25 mg PO DAILY hydrocodone-acetaminophen 5-325 mg tablet 1 tab PO Q6H PRN (Reason: pain) Qty: 12 0RF Discharge Orders: Discharge ED (Routine); Ordered 09/14/24 Ordered By: Nelida Romano Referrals: Ranjith Mack DO [Physician, Orthopedics] - 2 weeks Referral Note: You do have some degenerative changes in your back. You should call for follow-up appointment with Dr. Mack. Nelida Romano MD [Emergency Provider, Emergency Medicine] Jose Elias Garcia DO [Primary Care Provider, Emergency Medicine] Discharge Diet: Usual diet Discharge Activity: Increase activity as tolerated Patient Instructions: Back Pain (ED), Opioid Safety, Pain Management, Patient Portal & Buck Instructions Activity Restrictions/Additional Instructions: Thank you for choosing [facility] for your healthcare needs today. You have been screened and evaluated and felt safe for discharge. Health conditions do change or evolve sometimes and as such it is important that you follow up with your Primary Doctor to be re checked, 3-5 days is a general good time frame for follow up. You are always welcome to return to the ED for re assessment if your symptoms are worsening or you have new concerns Print Language: Occitan Coding Level of Care Code ED Vp [employer] Marketing for Gayathri Meneses
--- NOTE | 2024-09-14 16:08 | CTR_ITS ---
PROCEDURE INFORMATION: Exam: CT Lumbar Spine Without Contrast Exam date and time: 09/14/2024 4:31 PM Age: 64 years old Clinical indication: Low back pain; Prior surgery; Surgery date: 6+ months; Surgery type: Gb TECHNIQUE: Imaging protocol: Computed tomography of the lumbar spine without contrast. Radiation optimization: All CT scans at this facility use at least one of these dose optimization techniques: automated exposure control; mA and/or kV adjustment per patient size (includes targeted exams where dose is matched to clinical indication); or iterative reconstruction. COMPARISON: MR lumbar spine wo con* [id number] 09/06/2020 2:48 PM RADIATION DOSE METRICS: Total DLP (mGy-cm): 1059.7 FINDINGS: Spine is imaged from mid T12 through S3. AP alignment and curvature are normal. No acute fracture, lytic, or blastic lesions are present. There is slight anterior wedging of the L1 vertebral body, unchanged from prior lumbar spine MRI are appearance from 2020. Paraspinal soft tissues show scattered aortic, iliac, and splenic artery atherosclerotic calcifications. Surgical clips in the gallbladder fossa are noted. No adenopathy is observed. T12-L1, L1-L2: No significant spondylosis is present. L2-L3: Disc height is normal. There is a trace disc bulge and mild facet hypertrophy but no root impingement. L3-L4: Disc height is normal. There is a trace annular bulge and mild facet hypertrophy but no nerve root impingement L4-L5: Moderate disc space narrowing is seen with minimal vacuum disc phenomenon and a broad posterior disc bulge with right far lateral prominence. There is mild ligament hypertrophy. Right subarticular recess narrowing is seen with possible slight compromise of the right L5 root, slightly increased from prior MRI. The L4 roots exit without compromise. L5-S1: Moderate disc space narrowing is present. There is a shallow disc bulge without S1 root impingement. Mild bilateral facet hypertrophy is noted. There is left L5 epiradicular fat effacement due to the spondylosis at this level. No significant change is apparent. CT/CT lumbar spine wo con* [id number] IMPRESSION: 1. Slight interval increase in subarticular recess stenosis on the right at L4-L5 potential mild right L5 root compromise. Clinical correlation is needed. 2. Mild left L5 epiradicular fat effacement, unchanged from prior MRI.
--- NOTE | 2024-09-14 16:08 | CTR_ITS ---
PROCEDURE INFORMATION: Exam: CT Abdomen And Pelvis Without Contrast Exam date and time: 09/14/2024 4:31 PM Age: 64 years old Clinical indication: Pain; Other: Flank RT; Prior surgery; Surgery date: 6+ months; Surgery type: Gb; Additional info: Abdominal pain TECHNIQUE: Imaging protocol: Computed tomography of the abdomen and pelvis without contrast. Radiation optimization: All CT scans at this facility use at least one of these dose optimization techniques: automated exposure control; mA and/or kV adjustment per patient size (includes targeted exams where dose is matched to clinical indication); or iterative reconstruction. COMPARISON: CT abdomen pelvis w con* [id number] 04/15/2019 12:30 AM RADIATION DOSE METRICS: Total DLP (mGy-cm): 970.3 FINDINGS: Heart: The heart size is within normal limits. There is no pericardial effusion. There are coronary artery atherosclerotic changes present. Liver: Normal. No mass. Gallbladder and biliary ducts: Cholecystectomy changes are identified. There is no indication of biliary obstruction. Pancreas: Normal. No ductal dilation. Spleen: The spleen shows a stable punctate granulomatous calcification but is otherwise unremarkable. Adrenal glands: Normal. No mass. Kidneys and ureters: The kidneys are unremarkable in appearance. The previously seen proximal left ureteral stones have passed. There is no hydronephrosis or nephrolithiasis present on today's study. Stomach and bowel: Unremarkable. No obstruction. No mucosal thickening. Appendix: A normal appendix is demonstrated. Intraperitoneal space: Unremarkable. No free air. No significant fluid collection. Vasculature: Mild aortoiliac atherosclerotic calcifications are seen without aneurysm or dissection. There are no significant stenoses. Lymph nodes: Unremarkable. No enlarged lymph nodes. Urinary bladder: Unremarkable as visualized. Reproductive: Unremarkable as visualized. Bones/joints: There is no fracture, lytic, or blastic lesion. Thoracic and lumbar hypertrophic endplate changes are noted. Soft tissues: Unremarkable. CT/CT abdomen pelvis wo con [id number] IMPRESSION: 1. Interval passage of previously seen obstructing proximal left ureteral stones. Currently, no renal pathology is evident. 2. Prior cholecystectomy. No operative complication is evident.
[2024-09-14] MEDS: orphenadrine 30 mg/mL Inj 2 mL 60 MG IVP (17:11)
[2024-09-14 17:14] VITALS: BP 140/77; PULSE 76; O2SAT 96
[2024-09-14 17:23] LABS: Hematocrit 51.4 % (37-53); Hemoglobin 16.50 g/dL (11.27-16.99); Mean Corpuscular HGB Conc 32.1 g/dL (30-55); Mean Corpuscular Hemoglobin 28.6 pg (27-33); Mean Corpuscular Volume 89.1 fl (82-101); Nucleated Red Blood Cells % 0 %; Platelet Count 191 10^3/cmm (157-399); Red Blood Count 5.77 10^6/uL (3.85-5.65); White Blood Count 7.50 10^3/uL (3.29-11.43)
[2024-09-14 17:38] LABS: Alanine Aminotransferase 22 U/L (0-41); Albumin Level 4.2 g/dL (3.5-5.2); Alkaline Phosphatase 106 U/L (40-130); Aspartate Amino Transferase 22 U/L (0-40); Blood Urea Nitrogen 10 mg/dL (8-23); Calcium 9.4 mg/dL (8.5-10.5); Carbon Dioxide 24 mmol/L (22-29); Chloride 99 mmol/L (98-107); Creatinine Clr Calc Pharmacy 142.3153; Globulin 2.8 g/dL (1.3-4.6); Glucose 103 mg/dL (65-115); Lipase 25 U/L (13-60); Osmolality Calculated 285 mOsm/kg (285-295); Sodium 138 mmol/L (136-145); Total Protein 7.0 g/dL (6.6-8.7)
[2024-09-14 17:39] LABS: Lactic Sepsis W/Reflex 1.4 mmol/L (0.5-2.2)
[2024-09-14 17:52] LABS: Anion Gap 18.9 (5-19); Potassium 3.9 mmol/L (3.5-5.1)
[2024-09-14 18:24] VITALS: BP 140/84; PULSE 78; O2SAT 96
== END 2024-09-14 18:25 | disposition home or self-care (01) ==
PROVIDERS: Family Medicine; Emergency Provider Emergency Medicine; PCP Emergency Medicine Emergency Medical Services
DX: M54.50 Low back pain, unspecified (principal); I10 Essential (primary) hypertension; E11.51 Type 2 diabetes mellitus with diabetic peripheral angiopathy without gangrene; E78.5 Hyperlipidemia, unspecified; I25.2 Old myocardial infarction; F17.210 Nicotine dependence, cigarettes, uncomplicated; Z79.82 Long term (current) use of aspirin; Z79.4 Long term (current) use of insulin; Z79.899 Other long term (current) drug therapy; Z79.02 Long term (current) use of antithrombotics/antiplatelets; Z79.84 Long term (current) use of oral hypoglycemic drugs; Z88.5 Allergy status to narcotic agent; Z88.8 Allergy status to other drugs, medicaments and biological substances
CPT/HCPCS: 36415; 72131; 74176; 80053; 81001; 83605; 83690; 85025; 86140; 96374; 96375; 99285; J1100; J1885; J2360

== ENCOUNTER → 2024-10-03 14:15 | Outpatient (BNVA) | payer OTHER, SELFPAY | PROVIDERS: PCP Emergency Medicine Emergency Medical Services; Visit Provider Orthopaedic Surgery | DX: M54.9 Dorsalgia, unspecified (principal) | CPT/HCPCS: 72110; 99214 ==

== ENCOUNTER → 2024-10-30 12:54 | Outpatient (BNVA) | payer OTHER, SELFPAY | PROVIDERS: PCP Emergency Medicine Emergency Medical Services; Referring Provider Family Medicine; Visit Provider Anesthesiology Pain Medicine | DX: M54.9 Dorsalgia, unspecified (principal); M51.16 Intervertebral disc disorders with radiculopathy, lumbar region; M47.816 Spondylosis without myelopathy or radiculopathy, lumbar region; E11.40 Type 2 diabetes mellitus with diabetic neuropathy, unspecified | CPT/HCPCS: 99204 ==

== ENCOUNTER → 2024-11-08 10:53 | Outpatient (BNVA) | payer OTHER, SELFPAY | PROVIDERS: PCP Emergency Medicine Emergency Medical Services; Visit Provider Anesthesiology Pain Medicine | DX: M79.18 Myalgia, other site (principal); M54.9 Dorsalgia, unspecified; M51.16 Intervertebral disc disorders with radiculopathy, lumbar region; M47.816 Spondylosis without myelopathy or radiculopathy, lumbar region; F17.210 Nicotine dependence, cigarettes, uncomplicated | CPT/HCPCS: 20553; 99214; J1010; J3490 ==

== ENCOUNTER 2024-12-14 10:45 | Outpatient (CLI) | payer OTHER, SELFPAY ==
--- NOTE | 2024-12-14 10:51 | MR_ITS ---
WS: [id number] MRI RIGHT SHOULDER HISTORY: R SHOULDER PAIN COMPARISON: None available. TECHNIQUE: Multiplanar sequences of the shoulder joint are submitted. Severe AC joint arthritis. There is marked synovial thickening and heterogeneous soft tissue surrounding the AC joint. AC joint is narrowed with osteophytosis. Loss of the normal cortical surface of the distal clavicle with small erosions. Similar loss of cortex involving the acromion. Encroachment by advanced arthropathy upon the myotendinous portion of the supraspinatus with displacement. Mild subacromial impingement. No os acromion. Biceps tendon remains in the bicipital groove. Slightly high riding humeral head. Tiny insertion site tear measures 5 mm involving the supraspinatus tendon. Moderate tendinopathy in the distal subscapularis tendon. There is increased signal in the distal tendon near the coracohumeral interval. No tear is identified. Infraspinatus tendon is intact. No rotator cuff muscle atrophy or edema. There is edema abutting the superficial surface of the supraspinatus muscle which is related to the AC joint arthritis. Small cyst along the articular surface of the glenoid. No definite labral tears are identified. No joint effusion. MR/MR shoulder RT wo con* [id number] IMPRESSION: 1. Severe AC joint arthropathy. Large osteophytes with loss of the normal eugenio ical surface of the acromion and clavicle. Severe encroachment upon the myotend inous portion of the supraspinatus with adjacent edema. 2. Marked synovitis around the AC joint. 3. Insertion site tear, 5 mm, supraspinatus tendon. 4. Distal subscapularis tendinopathy. 5. No rotator cuff muscle edema or atrophy.
== END 2024-12-14 10:46 | disposition home or self-care (01) ==
LOC: RAD 10:47
PROVIDERS: PCP Family Medicine; Visit Provider Nurse Practitioner Family
DX: Z01.89 Encounter for other specified special examinations (principal); M19.011 Primary osteoarthritis, right shoulder; M25.711 Osteophyte, right shoulder; R93.7 Abnormal findings on diagnostic imaging of other parts of musculoskeletal system; R60.0 Localized edema; M65.911 Unspecified synovitis and tenosynovitis, right shoulder; M75.101 Unspecified rotator cuff tear or rupture of right shoulder, not specified as traumatic; M79.89 Other specified soft tissue disorders; M75.41 Impingement syndrome of right shoulder; M67.813 Other specified disorders of tendon, right shoulder; M85.611 Other cyst of bone, right shoulder
CPT/HCPCS: 73221

== ENCOUNTER → 2025-01-02 10:18 | Outpatient (BNVA) | payer OTHER, SELFPAY | PROVIDERS: PCP Family Medicine; Visit Provider Orthopaedic Surgery | DX: M51.16 Intervertebral disc disorders with radiculopathy, lumbar region (principal) | CPT/HCPCS: 99213 ==

== ENCOUNTER 2025-01-11 12:49 | Outpatient (CLI) | payer OTHER, SELFPAY ==
--- NOTE | 2025-01-11 13:00 | MR_ITS ---
WS: [id number] MRI LUMBAR SPINE NONCONTRAST HISTORY: lumbar pain COMPARISON: 09/06/2020 TECHNIQUE: Sagittal and axial multisequence imaging is submitted. Normal lumbar alignment with no compression fractures or marrow edema. Disc spaces and vertebral body heights are well-preserved. Conus terminates normally at L1-2 disc level. L1-L2: No stenosis. Mild facet arthritis. L2-L3: Mild annular disc bulging with ligamentum flavum and facet arthritis. No significant stenosis. L3-L4: Mild disc bulging with ligamentum flavum and facet arthritis. No stenosis. L4-L5: Diffuse disc bulging with effacement of ventral CSF. There is mild contact on the traversing L5 nerve root which has progressed since the prior study. Very mild RIGHT foraminal stenosis. L5-S1: Diffuse disc bulging with osteophytic ridging and facet arthritis. LEFT foraminal disc protrusion is new. Severe LEFT foraminal stenosis. Mild RIGHT foraminal stenosis. Marked bilateral facet joint arthritis. Paravertebral soft tissues are normal. MR/MR lumbar spine wo con* [id number] IMPRESSION: 1. Severe LEFT foraminal stenosis at L5-S1. LEFT foraminal disc protrusion wit h effacement of fat and facet joint arthritis. New stenosis and protrusion sinc e 09/06/2020. 2. Disc bulging at L4-5 contacting the traversing L5 nerve roots with mild pro gression of subarticular recess encroachment. Mild RIGHT foraminal stenosis.
== END 2025-01-11 12:50 | disposition home or self-care (01) ==
LOC: RAD 12:49
PROVIDERS: PCP Family Medicine; Visit Provider Orthopaedic Surgery
DX: M54.9 Dorsalgia, unspecified (principal); M51.16 Intervertebral disc disorders with radiculopathy, lumbar region; M46.96 Unspecified inflammatory spondylopathy, lumbar region; M47.896 Other spondylosis, lumbar region; M99.73 Connective tissue and disc stenosis of intervertebral foramina of lumbar region; M51.26 Other intervertebral disc displacement, lumbar region; M48.07 Spinal stenosis, lumbosacral region; M25.78 Osteophyte, vertebrae; M51.27 Other intervertebral disc displacement, lumbosacral region
CPT/HCPCS: 72148

== ENCOUNTER → 2025-01-25 10:29 | Outpatient (BNVA) | payer OTHER, SELFPAY | PROVIDERS: PCP Family Medicine; Visit Provider Orthopaedic Surgery | DX: Z01.818 Encounter for other preprocedural examination (principal); M51.16 Intervertebral disc disorders with radiculopathy, lumbar region; M47.816 Spondylosis without myelopathy or radiculopathy, lumbar region; R73.09 Other abnormal glucose | CPT/HCPCS: 36415; 80053; 81001; 83036; 85025; 99214 ==

== ENCOUNTER → 2025-02-07 10:53 | Outpatient (BNVA) | payer OTHER, SELFPAY | PROVIDERS: PCP Family Medicine; Visit Provider Anesthesiology Pain Medicine | DX: M79.18 Myalgia, other site (principal); M51.16 Intervertebral disc disorders with radiculopathy, lumbar region; M47.816 Spondylosis without myelopathy or radiculopathy, lumbar region; F17.210 Nicotine dependence, cigarettes, uncomplicated | CPT/HCPCS: 20553; 99214; J1010; J3490 ==

== ENCOUNTER 2025-02-12 09:45 | Observation (INO) | payer OTHER, SELFPAY ==
[2025-02-12] VITALS (20 sets, daily range): BP systolic 129–153; BP diastolic 60–92; PULSE 69–101; RESP 10–27; TEMP 36.3–36.7; O2SAT 90–99; BMI 29.4
--- NOTE | 2025-02-12 06:04 | ANES.PREANE2 ---
Pre-Anesthetic Assessment Height/Weight: Height 6 ft 2 in Operation Date: 02/12/25 07:00 Proposed Procedures p Posterior Lumbar Interbody Fusion PLIF(Not Applicable) - Ranjith Mack, DO Anesthetic Plan ASA status: 3 Anesthesia: General Other: No prior issues with anesthesia NPO since yesterday evening CAD history, s/p PCI in 2013. On chronic Plavix. Last dose 02/06/2025 RCRI of 3 indicating a 10% risk Hypertension on amlodipine and metoprolol GERD on omeprazole RONNY, no CPAP IDDM, last A1c was 7. Preop BS 135 Labs reviewed from 01/25/2025 acceptable for procedure EKG was performed in preop clinic and stated to be normal Plan for GETA Medications/Allergies Home Medications ?Medication ?Instructions ?Recorded ?Confirmed ?Last Taken ?Type amitriptyline 50 mg tablet 150 mg PO .HS 02/25/21 02/08/25 02/11/25 18:00 History amlodipine 5 mg tablet 5 mg PO DAILY #90 tabs 02/25/21 02/08/25 02/11/25 18:00 Rx aspirin 81 mg tablet,delayed 81 mg PO DAILY 02/25/21 02/08/25 02/07/25 History release (Adult Low Dose Aspirin) atorvastatin 80 mg tablet 80 mg PO .HS 02/25/21 02/08/25 02/11/25 18:00 History clopidogrel 75 mg tablet 75 mg PO DAILY 02/25/21 02/08/25 02/06/25 History insulin aspart U-100 100 unit/mL 10 unit SUBCUT TID 02/25/21 02/08/25 02/11/25 18:00 History (3 mL) subcutaneous pen (Novolog FlexPen U-100 Insulin aspart) insulin glargine 100 unit/mL 20 unit SUBCUT DAILY 02/25/21 02/08/25 02/11/25 18:00 History subcutaneous solution (Lantus U-100 Insulin) isosorbide mononitrate 30 mg 30 mg PO QPM 02/25/21 02/08/25 02/11/25 18:00 History tablet,extended release 24 hr metformin 1,000 mg tablet 1,000 mg PO BID 02/25/21 02/08/25 02/11/25 18:00 History metoprolol tartrate 100 mg tablet 50 mg PO BID 02/25/21 02/08/25 02/11/25 18:00 History omeprazole 20 mg capsule,delayed 20 mg PO DAILY 02/25/21 02/08/25 02/11/25 18:00 History release empagliflozin 25 mg tablet 25 mg PO DAILY 02/25/22 02/08/25 02/11/25 18:00 History (Jardiance) Allergies Allergy/AdvReac Type Severity Reaction Status Date / Time morphine Allergy Mild ADR-Halluci Verified 02/12/25 05:53 nating lisinopril Allergy Unknown ALGY-Hives Verified 02/12/25 05:53 methadone Allergy Unknown ALGY-Hives Verified 02/12/25 05:53 [facility] Anesthesia Medical History History of AR (myocardial infarction) HTN (hypertension) PVD (peripheral vascular disease) Hyperlipidemia Diabetes mellitus Left ureteral calculus Social History Smoking and tobacco/nicotine status: current every day tobacco/nicotine user cigarettes Packs smoked per day: 3 Alcohol intake: current Alcohol intake frequency: 0-2 Drinks per Day Alcohol type: hard liquor Substance/Drug Use: current
--- NOTE | 2025-02-12 06:31 | W.PM.OPSUD ---
Surgery/Procedure H&P Update DATE OF PROCEDURE: February 12, 2025 DATE H&P PERFORMED: 01/25/25 H&P UPDATE INFORMATION: I have reviewed H&P completed within last 30 days, I have examined patient prior to procedure and No changes to prior documentation PLANNED PROCEDURE: Operation Date: 02/12/25 07:00 Proposed Procedures p Posterior Lumbar Interbody Fusion PLIF(Not Applicable) - Ranjith Mack DO
[2025-02-12] MEDS: ceFAZolin 2,000 mg SDV 2000 MG IVP ×3 (07:10→17:01)
[2025-02-12] MEDS: lidocaine-epi 1% 20 mL INJ INJECTION (08:34)
[2025-02-12] MEDS: tobramycin 40 mg/mL SDV 2mL 160 MG XX (08:35)
[2025-02-12] MEDS: heparin, porcine 1,000 unit/mL INJ 10 mL 10000 UNIT IRRIGATION (08:35)
--- NOTE | 2025-02-12 09:58 | P.OP_ITS ---
Operative Report Date of procedure: February 12, 2025 Pre-op diagnosis: Lumbar stenosis neurogenic claudication Post-op diagnosis: same Procedure done: 1. L5/S1 Interbody fusion with posterolateral fusion 2. Instrumentation L5/S1 3. Cage at L5/S1 4. L5-S1 laminectomy with facetectomy 5. use of autograft from same incision 6. allograft 7. Bone marrow aspirate from right iliac crest 8. Use of computer navigation stereotactic for the spine Surgeon: Ranjith Mack DO Estimated blood loss (mL): 50 Procedure: 1. L5/S1 Interbody fusion with posterolateral fusion 2. Instrumentation L5/S1 3. Cage at L5/S1 4. L5-S1 laminectomy with facetectomy 5. use of autograft from same incision 6. allograft 7. Bone marrow aspirate from right iliac crest 8. Use of computer navigation stereotactic for the spine Patient is brought to the operative suite. After undergoing anesthesia, the patient had neuro monitoring attached. Patient was then placed in the prone position on the Nemesio table. All areas of impingement were well-padded. Patient was then prepped and draped in the normal sterile fashion. Skin incision was then made over the L5/S1 space. Subperiosteal dissection was made out to the transverse processes of L5 and sacral ala bilaterally. Prior to placing the pedicle screws the Namshi bone marrow aspirate kit was used to aspirate bone marrow aspirate from right iliac crest. This was done by using the sharp probe to open up the bone. Aspiration was performed and then the blunt probe was then used to dissect down to through the bone tunnel. An aspirating well drawn back a millimeter approximately 20 cc of bone marrow aspirate was used. Admixed with the allograft and autograft bone that will be used. The fiducial was placed 2 pins were placed into the right iliac crest and easily removed at the end of the case. The fiducial was attached the C-arm was brought in the patient information from the C-arm was loaded into the computer for placement of the pedicle screws using computer navigation. The technique for placing the pedicle screws was to use a drill followed by the gearshift probe linked to computer navigation. Followed by the ball probe to feel the superior inferior medial lateral fang of the pedicles. Then placement of the screws using computer navigation. Was done at each pedicle. Screws were placed at L5 bilaterally and S1 bilaterally. Next attention was brought to performing the laminectomy ofL5. This was done using the high-speed bur Kerrisons and curettes. Once the lamina was removed and then attention was brought to performing a partial facetectomy on the contralateral side. This was done again using the high-speed bur curettes and Kerrisons. The ligamentum flavum was taken down bilaterally from L5 to S1. Attention was then brought to the facet on the ipsilateral side. The facet was taken down. The S1 nerve was decompressed as it passed around the S1 pedicle. The laminectomy was done for purposes of decompressing the nerve as well as placement of the cage. The L5 nerve was identified as it traversed through the L5/S1 foramen. The thecal sac was identified and retracted. The L5/S1 disc base was identified. Using a knife the disc base was opened. And then sequential suzanne were placed. The first shaver was a 6 and the last shaver was a 10. Using a pituitary and down going curette the endplates were scraped and disc material was removed from the space. Once adequate decompression of the disc base was felt to be had. Osteoamp sponge was packed into the anterior aspect of the disc base. Then a size 11 cage from [employer] was placed after packing osteoamp into the cage. While placing the cage the thecal sac and S1 nerve was protected. C arm was used to ensure that the cages placed in the appropriate position. Attention was then brought to attaching the rods to the screws placed in the L5 bilaterally to S1 bilaterally. Caps were torqued into position. Locking the construct in place. Wound was copiously irrigated and then attention was brought to decorticating the facets and transverse processes laterally. Bone that was taken down from the lamina was used along with osteoamp fibers and sponges were packed into the lateral gutters along the facet joints. This was done bi laterally. Wound was then closed in a layered fashion starting with the thoracolumbar fascia. 0-vicryl was used the sub cutaneous tissue was closed with 2-0 vicryl and skin with 4-0 monocryl. Glue was then used to seal the skin and a steril dressing was applied. Patient was then placed in the supine position. The endotracheal tube was removed and patient was transferred to the PACU in stable condition.
[2025-02-12] MEDS: fentaNYL 50 mcg/mL INJ 2mL IVP ×2 (10:03→10:13)
--- NOTE | 2025-02-12 10:33 | ANE.PACU2 ---
Inpatient post-anesthesia follow up: Airway intact: Yes Vital signs: Temperature 98.0 F Pulse Rate 97 Respiratory Rate 15 Blood Pressure 151/78 Pulse Oximetry 96 Oxygen Delivery Me thod Room Air Oxygen Flow Rate 2 Fraction of Inspir ed Oxygen Hydration adequate: Yes Nausea and vomiting: No Pain level: 1 Mental status: Baseline
--- NOTE | 2025-02-12 10:48 | PC.NURSE ---
1041 - accepted into room 268 with ABRIL Cooper at side - pt in no distress upon this nurse exiting care - BP 130/75 - pulse 75 - room air 93% temp 97.4
[2025-02-12] MEDS: HYDROcodone-acetaminophen 5-325 mg Tablet PO ×2 (15:50→20:34)
--- NOTE | 2025-02-12 16:07 | XR_ITS ---
WS: [id number] XR lumbar spine 1V 80574 REASON FOR EXAM: OR PIC , PLIF FINDINGS: Posterior decompression with pedicle screws, interconnecting rods, and interbody fusion device at L5-S1. Surgical appliances are intact and in proper position and alignment. XR/XR lumbar spine 1V 46175 IMPRESSION: Posterior lumbar fusion without abnormality.
[2025-02-13] VITALS: BP 137/77; PULSE 76; RESP 18; TEMP 36.9; O2SAT 97
[2025-02-13] MEDS: ceFAZolin 2,000 mg SDV 2000 MG IVP (01:30)
[2025-02-13] MEDS: HYDROcodone-acetaminophen 5-325 mg Tablet PO ×2 (02:31→06:31)
[2025-02-13 06:00] VITALS: BP 134/71; PULSE 77; RESP 18; TEMP 36.8; O2SAT 93; BMI 29.4
--- NOTE | 2025-02-13 06:15 | PC.NURSE ---
Pt blood sugar [address] Ramsey notified and asked if I should still give morning sugar meds and insulin. Dr. Ramsey said to hold Humalog but give the rest. Physician notification put in.
[2025-02-13] MEDS: insulin glargine 100 units/1 mL 20 UNIT SUBCUT (06:22)
[2025-02-13] MEDS: DAPAGLIFLOZIN 10 MG TABLET PO (06:22)
[2025-02-13 07:47] VITALS: BP 134/87; PULSE 65; RESP 18; TEMP 36.4; O2SAT 95
--- NOTE | 2025-02-13 07:53 | P.DS_ITS ---
Discharge Providers Date of Admission: 02/12/25 09:45 Date of Discharge: February 13, 2025 Attending Provider at Admission: Ranjith Mack DO Attending Provider at Discharge: Ranjith Mack DO Primary Care Provider: Kenia Hyman MD Reason for Visit Reason for Visit: M48.062 Physical Exam Urinary Catheter Management: Cedeno: Cath Placed During This Visit: yes, but has since been removed by the nurse Reason for Continuing Indwelling Catheter: Decision to DC Catheter Urinary Catheter Date of Insertion: 02/12/25 Urinary Catheter Time of Insertion: 07:15 Date Urinary Catheter Removed: 02/12/25 Time Urinary Catheter Discontinued: 16:30 Discharge Data Studies Completed and Pending Completed Studies During Hospitalization Category Date Time Status XR lumbar spine 1V 31151 Routine Exams 02/12/25 16:07 Completed Pending at discharge Category Date Time Status C-arm Fluoroscopy 10916 Routine Exams 02/12/25 06:31 Ordered Radiology Impressions Lumbar Spine X-Ray 02/12/25 16:07 IMPRESSION: Posterior lumbar fusion without abnormality. Laboratory Results POC Glucose 96 mg/dL (70-110) 02/13/25 05:58 Blood Type O Positive 02/12/25 06:20 Rho(D) Type Rh positive 02/12/25 06:20 Antibody Screen Negative 02/12/25 06:20 Vitals Last Vital Signs Temp 97.5 F L 02/13/25 07:47 Pulse 65 02/13/25 07:47 Resp 18 02/13/25 07:47 BP 134/87 02/13/25 07:47 Pulse Ox 95 02/13/25 07:47 O2 Del Method Room Air 02/13/25 07:47 O2 Flow Rate 2 02/12/25 11:15 Discharge Plan Discharge Patient Disposition: Home Condition: Stable Prescriptions: New hydrocodone-acetaminophen 5-325 mg tablet 1 tab PO Q4H PRN (Reason: pain) 7 Days Qty: 42 0RF Continued amitriptyline 50 mg tablet 150 mg PO .HS atorvastatin 80 mg tablet 80 mg PO .HS insulin aspart U-100 [Novolog FlexPen U-100 Insulin] 100 unit/mL (3 mL) insulin pen 10 unit SUBCUT TID isosorbide mononitrate 30 mg tablet extended release 24 hr 30 mg PO QPM metformin 1,000 mg tablet 1,000 mg PO BID metoprolol tartrate 100 mg tablet 50 mg PO BID omeprazole 20 mg capsule,delayed release(DR/EC) 20 mg PO DAILY Lantus U-100 Insulin 100 unit/mL solution 20 unit SUBCUT DAILY amlodipine 5 mg tablet 5 mg PO DAILY Qty: 90 3RF Jardiance 25 mg tablet 25 mg PO DAILY Held clopidogrel 75 mg tablet 75 mg PO DAILY Hold Instructions: Resume on 02/14/25. aspirin [Adult Low Dose Aspirin] 81 mg tablet,delayed release (DR/EC) 81 mg PO DAILY Hold Instructions: Resume on 02/14/25. Discharge Diet: Advance as tolerated Discharge Activity: Limit activity as instructed Patient Instructions: Acute Wound Care (DC), Opioid Safety, Post Anesthesia Care, Patient Portal & Buck Instructions Activity Restrictions/Additional Instructions: Thank you for choosing [facility] for your care! The following is a list of instructions, from your provider, to follow upon your discharge to ensure you have the optimal recovery from your recent injury or surgery. Follow-up care is a medrano part of your treatment and safety. Be sure to make and go to all appointments, and call your doctor if you are having problems. If you do not already have a follow-up appointment made, call Dr. Mack's office in the next 1-3 days to make follow up appointment for 1 weeks at [phone]. It is also a good idea to know your test results and keep a list of the medicines you take. Medications will be prescribed for you at your provider?s discretion. These medications are to be used as instructed;if they are taken more often that prescribed they will not be refilled early and in most cases will not be refilled at all. > When a refill is needed,you should contact our office 2-3 business days beforeyour prescription runs out. Medications will NOTbe refilled by police matron providers after hours! > Many pain medications contain Tylenol (Acetaminophen). Do not consume more than 4,000 mg of Tylenol per day in total with any combination of medications. > Pain medications can cause constipation. Please use an over the counter stool softener as directed, while taking pain medications. Consult your local pharmacist with questions or recommendations on stool softeners. If constipation persists, contact our office or your primary care provider. > While under our care,you are not to receive pain medications or other controlled substances from any other provider unless our office is notified and approves. Any attempts to do so will result in refusal to prescribe any further pain medications and possible dismissal from our practice. ? Keep dressing clean dry and intact ? Walking is essential for the healing process after surgery. We would like you to slowly advance your walking. This should be done on relatively flat clear ground (inside or out) or can be done on a treadmill. Remember this goal does not have to happen all at once, slowly increase your distance and duration. This can be broken into more more than one walk per day as tolerated. Patients who walk as directed after surgery rarely require Physical Therapy. In the unlikely event this issue arises your provider will direct hospital staff to make the appropriate arrangements. ? No lifting over 5 pounds {a gallon of milk) or bending/twisting until further notice. Each of these activities places an unnecessary amount of stress onto the body and can impede the delicate healing process. > Instead of bending at the waist, keep your back straight and bend at t he knees. > Instead of twisting your torso, keep your back straight and turn your entire body with your feet. ? You may sleep in any position which makes you comfortable.Many patients find comfort sleeping in a reclining chair. It is not abnormal to have difficulty sleeping for the first several weeks following your surgery. We recommend trying Benadryl or Tylenol PM as directed to help with your sleeping difficulties. Both medications are over the counter and available without prescription. ? NO SMOKING!!!Smoking dramatically increases the probability of developing postoperative wound infections. ? Common complaints after lumbar and/or thoracic spine surgery include, but are not limited to: numbness and/or tingling in the legs, pain around the incision and surrounding tissues, muscle spasms, or stiffness of the middle to low back. Contact our office if these symptoms persist or if an acute change occurs. ? No driving for the first 3-5 days, and not while taking narcotics until seen at your follow-up appointment and cleared.There are no restrictions for riding on short trips, however if you take a longer trip, arrangements should be made to make regular stops to get out of the vehicle and stretch . ? Swelling is an unfortunate event that will take place with any surgery and is the primary source of your postoperative discomfort. While walking and regular approved activities helps control inflammation, there are additional steps you can take to minimize swelling. > Place ice over the surgical site and surrounding tissue for twenty minutes, followed by applying a low/medium heat (heating pad) for an additional twenty minutes every 1-2 hours as needed for pain relief. > You may use of over the counter anti-inflammatory medications (Ibuprofen, Motrin, Aleve, Advil, etc) as directed on the package label. These types of medicines will significantly reduce the amount of discomfort you experience after surgery from swelling. It should be noted that if you have an allergy to any of these medications, or a history of ulcers or kidney disease you should consult your primary care provider prior to starting these medications. Discharge Attestations Time Spent in Discharge Care*: less than 30 min Quality Metrics Clinical Quality Measures [ No reported AMI, CVA or VTE this stay] Coding Level of Care Code Acute Code for Chg Gideon
--- NOTE | 2025-02-13 10:05 | PC.NURSE ---
Dr. Mack gave verbal orders to pull hemovac drain. Drain was pulled at 0834.
--- NOTE | 2025-02-13 10:47 | PC.CHAP ---
Pastoral Care Encounter/Spiritual Assessment Type of Contact [] Declined mash filter cloth changer visit [] Patient/Family/Request visit [] Outpatient visit [] Follow-up visit [] Physician referral [] Code/Alert [x] Routine visit [] Staff referral [] Actively dying [] Patient sleeping [] Family support [] [] Out of room [] Palliative care [] [] Receiving care in room [] Pre-surgical visit [] Trauma [] Long length of stay [] ICU visit [] Other: Relational/Emotional Strength [x] Patient feels connected with others/family/visitors/staff [] Distress [] Loneliness/isolation [] Abandonment Spirituality of Patient [x] Person of Brenda [] Attends Church of their Brenda [x] Believes in Prayer [] Reads Bible or Islam materials [] There are Spiritual issues to be addressed Oxyacetylene Welder Interventions [x] Prayer [x] Active listening [] Non-anxious presence [x] Spiritual/emotional support [] Crisis/trauma care [] Spiritual counseling [] Bereavement support [] Provided bereavement packet [] Provided Bible/devotional materials [] Provided toy/stuffed animal, coloring book to patient or family member [] Provided Communion [] Anointing/[place] [] Salvation [x] Completed spiritual assessment [] Other: Impact on Illness or Injury [] Angry [] Fearful [] Anxious [] Often cries [] Exhaustion [] Unable to work [] Unable to attend restorationism [] Unable to walk/stand [] Unable to read [] Unable to drive [] Unable to eat/drink [] Unable to sleep [] Unable to be with family [] Patient intubated [] Other: Summary Time spent with patient 5 min
[2025-02-13 11:08] VITALS: BP 134/80; PULSE 65; RESP 18; TEMP 36.9; O2SAT 95
--- NOTE | 2025-02-13 11:16 | PC.NURSE ---
In room to discharge the patient for Guillermina SAMUELS who is his primary nurse. Patient is A&Ox3. Respirations even and non-labored on room air. Reviewed discharge instructions with patient and significant other. Reviewed medications, follow up appointments, and instructions on showering and driving. Patient was ambulating around in the room. Patient verbalized understanding of discharge instructions. Patient wheel chaired to private car.
== END 2025-02-13 11:32 | disposition home or self-care (01) ==
LOC: MEDSURG 19:47
PROVIDERS: Admitting Provider Orthopaedic Surgery; PCP Family Medicine; Visit Provider Orthopaedic Surgery
PROC: (CPT 22612; principal; 2025-02-12 07:00)
DX: M48.062 Spinal stenosis, lumbar region with neurogenic claudication (principal); I25.10 Atherosclerotic heart disease of native coronary artery without angina pectoris; I10 Essential (primary) hypertension; K21.9 Gastro-esophageal reflux disease without esophagitis; G47.33 Obstructive sleep apnea (adult) (pediatric); Z99.89 Dependence on other enabling machines and devices; E11.9 Type 2 diabetes mellitus without complications; Z79.4 Long term (current) use of insulin; Z79.84 Long term (current) use of oral hypoglycemic drugs; Z79.82 Long term (current) use of aspirin; Z79.02 Long term (current) use of antithrombotics/antiplatelets; I25.2 Old myocardial infarction; E78.5 Hyperlipidemia, unspecified; F17.210 Nicotine dependence, cigarettes, uncomplicated
CPT/HCPCS: 22633; 61783; 20930; 20936; 22840; 36415; 36416; 51702; 72020; 76000; 82962; 86850; 86900; 96372; 97116; 97161; A4649; C1713; C1776; G0378; J0131; J0330; J0690; J1100; J1644; J1815; J1885; J2371; J2405; J2704; J2710; J3010; J3260; J3373; J3490; J7030; J7120; J9999

== ENCOUNTER → 2025-02-27 08:23 | Outpatient (BNVA) | payer OTHER, SELFPAY | PROVIDERS: PCP Family Medicine; Visit Provider Orthopaedic Surgery | DX: Z98.890 Other specified postprocedural states (principal); Z98.1 Arthrodesis status | CPT/HCPCS: 99024 ==